=== PATIENT | female | born 1955 | race African-American/Black ===

== ENCOUNTER 2021-12-16 06:04 | Emergency (ER) | payer OTHER ==
[~2021-12-16] VITALS: Ht 167.6 cm; Wt 81.6 kg
[2021-12-16 06:09] VITALS: BP 149/68
[2021-12-16] MEDS ORDERED: CEPH-509 PO (07:05)
[2021-12-16] MEDS ORDERED: ACE3T PO (07:05)
[2021-12-16] MEDS ORDERED: ONDANSETRON ODT 4 MG TAB PO ONE (07:15)
[2021-12-16] MEDS ORDERED: ACETAMINOPHEN/CODEINE#3 (300/30mg) TAB PO ONE (07:15)
== END 2021-12-16 10:08 | disposition home or self-care (01) ==
LOC: ER 06:04 → EDBD 06:04 → ER 10:08
DX: S81.012A Laceration without foreign body, left knee, initial encounter (principal); I10 Essential (primary) hypertension; E11.9 Type 2 diabetes mellitus without complications; E78.5 Hyperlipidemia, unspecified; Z86.73 Personal history of transient ischemic attack (TIA), and cerebral infarction without residual deficits; Z79.899 Other long term (current) drug therapy; Z91.040 Latex allergy status; W01.198A Fall on same level from slipping, tripping and stumbling with subsequent striking against other object, initial encounter; Y93.89 Activity, other specified; Y92.89 Other specified places as the place of occurrence of the external cause; Y99.8 Other external cause status
CPT/HCPCS: 12002; 73562; 99283; J2001; J7030; Q0162

== ENCOUNTER 2022-01-02 08:21 | Emergency (ER) | payer OTHER, MEDICAID ==
[~2022-01-02] VITALS: Ht 165.1 cm; Wt 75.7 kg
[~2022-01-02 08:21] MED LIST: ACE3T PO; CEPH-509 PO
[2022-01-02 08:34] VITALS: BP 124/67
[2022-01-02] MEDS ORDERED: CEPH-509 PO (08:53)
== END 2022-01-02 09:04 | disposition home or self-care (01) ==
LOC: ER 08:21
DX: S81.012D Laceration without foreign body, left knee, subsequent encounter (principal); I10 Essential (primary) hypertension; E11.9 Type 2 diabetes mellitus without complications; E78.5 Hyperlipidemia, unspecified; Z86.73 Personal history of transient ischemic attack (TIA), and cerebral infarction without residual deficits; Z79.899 Other long term (current) drug therapy; Z88.8 Allergy status to other drugs, medicaments and biological substances; Z91.040 Latex allergy status; X58.XXXD Exposure to other specified factors, subsequent encounter

== ENCOUNTER 2022-01-09 08:08 | Emergency (ER) | payer OTHER, MEDICAID ==
[~2022-01-09] VITALS: Ht 165.1 cm; Wt 75.7 kg
[2022-01-09 08:11] VITALS: BP 159/60
== END 2022-01-09 08:27 | disposition home or self-care (01) ==
LOC: ER 08:08
DX: S81.012D Laceration without foreign body, left knee, subsequent encounter (principal); E11.9 Type 2 diabetes mellitus without complications; E78.5 Hyperlipidemia, unspecified; I10 Essential (primary) hypertension; Z86.73 Personal history of transient ischemic attack (TIA), and cerebral infarction without residual deficits; X58.XXXD Exposure to other specified factors, subsequent encounter

== ENCOUNTER 2023-09-11 23:29 | Emergency (ER) | payer OTHER ==
[~2023-09-11] VITALS: Ht 165.1 cm; Wt 71.8 kg
[2023-09-12 01:48] VITALS: BP 187/89; PULSE 69; RESP 16; TEMP 97.6; O2SAT 99
== END 2023-09-12 03:56 | disposition home or self-care (01) ==
LOC: ER 23:29
DX: M25.551 Pain in right hip (principal); I10 Essential (primary) hypertension; E11.9 Type 2 diabetes mellitus without complications; E78.5 Hyperlipidemia, unspecified; Z86.73 Personal history of transient ischemic attack (TIA), and cerebral infarction without residual deficits; Z79.899 Other long term (current) drug therapy; Z91.040 Latex allergy status; Z88.8 Allergy status to other drugs, medicaments and biological substances; W10.9XXA Fall (on) (from) unspecified stairs and steps, initial encounter; Y93.89 Activity, other specified; Y92.89 Other specified places as the place of occurrence of the external cause; Y99.8 Other external cause status
CPT/HCPCS: 72170

== ENCOUNTER 2024-01-17 13:51 | Emergency (ER) | payer OTHER ==
[~2024-01-17] VITALS: Ht 165.1 cm; Wt 70.0 kg
[2024-01-17] MEDS ORDERED: ACET500T58 PO (19:52)
[2024-01-17] MEDS ORDERED: PRED10TA PO (19:52)
[2024-01-17] MEDS ORDERED: CEPH500C PO (19:52)
[2024-01-17 20:20] VITALS: BP 132/78; PULSE 66; RESP 18; O2SAT 100
[2024-01-17 20:38] VITALS: TEMP 97.5
[2024-01-17] MEDS: ACETAMINOPHEN 325 MG TAB PO ONE (20:38)
[2024-01-17] MEDS: cefTRIAXone SOD 1,000 MG VL IM ONE (20:38)
[2024-01-17] MEDS: LIDOCAINE 1% HCL (LOCAL ANESTH.) INJ 20ML MDV ID ONE (20:45)
== END 2024-01-17 21:25 | disposition home or self-care (01) ==
LOC: ER 13:51
DX: L03.032 Cellulitis of left toe (principal); E11.9 Type 2 diabetes mellitus without complications; E78.5 Hyperlipidemia, unspecified; I10 Essential (primary) hypertension; Z86.73 Personal history of transient ischemic attack (TIA), and cerebral infarction without residual deficits; Z91.040 Latex allergy status
CPT/HCPCS: 73660; 96372; 99283; J0696; J2001

== ENCOUNTER 2024-08-23 08:23 | Emergency (ER) | payer BC, OTHER ==
[~2024-08-23] VITALS: Ht 165.1 cm; Wt 68.0 kg
[~2024-08-23 08:23] MED LIST changes: +ACET500T58 PO; +CEPH500C PO; +PRED10TA PO
[2024-08-23 09:19] LABS: Basophils # (auto) 0.1 10 ^3/uL (0-0.2); Eosinophils # (auto) 0.1 10 ^3/uL (0-0.8); Lymphocytes # (auto) 1.7 10 ^3/uL (0.4-5.4); Lymphocytes % (auto) 17.1 % (10.0-50.0); Monocytes # (auto) 0.6 10 ^3/uL (0-1.3)
[2024-08-23 09:21] LABS: Basophils % (auto) 0.6 % (0.0-2.0); Eosinophils % (auto) 1.1 % (0.0-7.0); Hematocrit 27.3 % (36.0-46.0); Hemoglobin 8.5 g/dL (12.2-16.2); Mean Corpuscular Hemoglobin 30.2 pg (28.0-32.0); Mean Corpuscular Hgb Conc. 31.1 g/dL (32.0-36.0); Mean Corpuscular Volume 96.9 fL (80.0-100.0); Monocytes % (auto) 5.9 % (0.0-12.0); Neutrophils # (auto) 7.7 10 ^3/uL (1.6-8.6); Neutrophils % (auto) 75.3 % (37.0-80.0); Nucleated Red Blood Cells % 0.4 %; Platelet Count (auto) 208 10^3/uL (140-450); Red Blood Cells 2.82 10^6/uL (4.0-5.20); Red Cell Distribution Width 15.9 % (11.8-14.3); White Blood Cell 10.2 10^3/uL (4.4-10.8)
[2024-08-23 09:30] VITALS: BP 110/40; RESP 18; TEMP 97.6; O2SAT 95
[2024-08-23 09:36] LABS: Alkaline Phosphatase 91 U/L (46-116); Anion Gap 7 (5-15); BUN/Creatinine Ratio 5.9 (10.0-20.0); Carbon Dioxide 25 mmol/L (20-31); Chloride 105 mmol/L (98-107); Potassium 4.6 mmol/L (3.5-5.1); Sodium 137 mmol/L (136-145)
[2024-08-23 09:37] LABS: Albumin 4.2 g/dL (3.2-4.8); Bilirubin, Total 0.2 mg/dL (0.2-1.0); Total Protein 6.8 g/dL (5.7-8.2)
--- NOTE | 2024-08-23 09:37 | DVH ---
CHEST RADIOGRAPH Indication: cp Technique: Frontal and lateral view of the chest was obtained Comparison: None FINDINGS: Lines and Tubes: Tunneled right central venous catheter in satisfactory position. Lungs: Left basilar subsegmental atelectasis. Pleura: No effusion. No pneumothorax. Cardiomediastinal contours: Unremarkable Bones: Unremarkable IMPRESSION: Left basilar subsegmental atelectasis.
[2024-08-23 09:44] LABS: Alanine Aminotransferase < 9 U/L (7-40); Aspartate Aminotransferase 10 U/L (13-40); Blood Urea Nitrogen 48 mg/dL (9-23); Calcium 10.6 mg/dL (8.7-10.4); Glucose 161 mg/dL (74-106); Magnesium 3.1 mg/dL (1.6-2.6)
[2024-08-23 10:24] VITALS: PULSE 65
--- NOTE | 2024-08-23 10:24 | ED.PDOC ---
History of Present Illness HPI Comments 69 y/o F, with a Hx of CVA, DM, ESRD w/HD M/W/F, HLD, and HTN, presents with son for ESRD - needing dialysis, today. Per son, patient is a poor historian and reported to have, recently, been Dx with ESRD and placed on dialysis during a hospital admission, while visiting family, in [place] and was instructed to come to the ED for emergency dialysis after returning, yesterday, due to, yet, establishing point of care with her local dialysis center. He last dialysis appointment was stated to have taken place in [place] on Wednesday (08/21/24). She has a reported Neetu-catheter in her right-upper chest area. Patient denies having any fluid retention, weakness, chest pain, shortness of breath, or other symptoms at this time. Chief Complaint: Chest Wall Injury Time Seen by MD: 08:45 Primary Care Provider: NONE Reviewed Notes: Nurses Notes, Medications, Allergies Allergies: Coded Allergies: Latex (Verified Allergy, Unknown, 12/16/21) Lisinopril (Verified Allergy, Unknown, 01/02/22) Home Meds Active Scripts Cephalexin Monohydrate (Cephalexin) 500 Mg Cap, 1 CAP PO QID for 7 Days, #28 CAP 0 Refills Prov:JEFF BRITT 01/17/24 Prednisone (Prednisone) 10 Mg Tab, 10 MG PO BID for 5 Days, #10 TAB 0 Refills Prov:JEFF BRITT 01/17/24 Acetaminophen (Acetaminophen) 500 Mg Tab, 500 MG PO Q4HPRN, #30 TAB 0 Refills Prov:JEFF BRITT 01/17/24 Cephalexin (KEFLEX 500) 500 Mg Cap, 1 CAP PO QID, #28 CAP Prov:KARSTEN LOZA 01/02/22 Acetaminophen W/ Codeine (Tylenol W/Cod #3) 1 Tab Tb, 1 TAB PO QIDP, #10 TAB 0 Refills Prov:JEFF BRITT 12/16/21 Cephalexin (KEFLEX 500) 500 Mg Cap, 1 CAP PO BID for 7 Days, #14 CAP 0 Refills Prov:JEFF BRITT 12/16/21 Information Source: Patient, Relative (Child) Mode of Arrival: Ambulatory Severity: Moderate Timing: Hours Duration: Since onset Prehospital treatment: None Past Medical History PAST MEDICAL HISTORY: CKF (progressed to ESRD), CVA, DM, ESRD (w/HD M/W/F), High Lipids, HTN Surgical History: Hernia Repair, Tonsillectomy CATERING SALES MANAGER History: No Pertinent CATERING SALES MANAGER History Family History Family History: Unknown Social History Smoker: Non-Smoker Alcohol: Denies ETOH Use Drugs: Denies Drug Use Lives In: Home All Other Systems: Reviewed and Negative (negative unless otherwise stated above or in HPI) Physical Exam General Appearance: No Apparent Distress HEENT: Normal ENT Inspection, PERRL/EOMI Neck: Full Range of Motion, Non-Tender Respiratory: Chest Non-Tender, Lungs Clear, No Accessory Muscle Use, No Respiratory Distress, Normal Breath Sounds, Other (Catheter right upper chest) Cardiovascular: No Edema, No JVD, No Murmur, No Gallop, Normal Peripheral Pulses, Regular Rate/Rhythm Breast Exam: Deferred Gastrointestinal: No Organomegaly, Non Tender, No Pulsatile Mass, Normal Bowel Sounds, Soft Genitalia: Deferred Pelvic: Deferred Rectal: Deferred Extremities: No calf tenderness, Normal capillary refill, Normal inspection, Normal range of motion, Non-tender, No pedal edema Neurologic: Alert, 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 Was a procedure done?: No EKG EKG : Pulse Rate (adult): 65 Armstrong: Normal Cardiac Rhythm: NSR Block: None Hypertrophy: LVH ST: Normal Differential Dx Considerations may include: ESRD needing dialysis X-Ray, Labs, Meds, VS Vital Signs Date Time Temp Pulse Resp B/P (MAP) Pulse Ox O2 Delivery O2 Flow Rate FiO2 08/23/24 10:24 65 08/23/24 09:35 Room Air* 0 21 08/23/24 09:30 97.6 63 18 110/40 (63) 95 97.6 08/23/24 08:44 65 08/23/24 08:30 98.2 74 18 122/52 (75) 95 Lab Test 08/23/24 09:08 08/23/24 08:35 Range/Units White Blood Count 10.2 4.4-10.8 10^3/uL Red Blood Count 2.82 L 4.0-5.20 10^6/uL Hemoglobin 8.5 L 12.2-16.2 g/dL Hematocrit 27.3 L 36.0-46.0 % Mean Corpuscular Volume 96.9 80.0-100.0 fL Mean Corpuscular Hemoglobin 30.2 28.0-32.0 pg Mean Corpuscular Hemoglobin Concent 31.1 L 32.0-36.0 g/dL Red Cell Distribution Width 15.9 H 11.8-14.3 % Platelet Count 208 140-450 10^3/uL Mean Platelet Volume 9.5 6.9-10.8 fL Neutrophils (%) (Auto) 75.3 37.0-80.0 % Lymphocytes (%) (Auto) 17.1 10.0-50.0 % Monocytes (%) (Auto) 5.9 0.0-12.0 % Eosinophils (%) (Auto) 1.1 0.0-7.0 % Basophils (%) (Auto) 0.6 0.0-2.0 % Neutrophils # (Auto) 7.7 1.6-8.6 10 ^3/uL Lymphocytes # (Auto) 1.7 0.4-5.4 10 ^3/uL Monocytes # (Auto) 0.6 0-1.3 10 ^3/uL Eosinophils # (Auto) 0.1 0-0.8 10 ^3/uL Basophils # (Auto) 0.1 0-0.2 10 ^3/uL Nucleated Red Blood Cells 0.4 % Sodium Level 137 136-145 mmol/L Potassium Level 4.6 3.5-5.1 mmol/L Chloride Level 105 98-107 mmol/L Carbon Dioxide Level 25 20-31 mmol/L Anion Gap 7 5-15 Blood Urea Nitrogen 48 H 9-23 mg/dL Creatinine 8.09 H 0.550-1.02 mg/dL Glomerular Filtration Rate Calc 5 >90 mL/min BUN/Creatinine Ratio 5.9 L 10.0-20.0 Serum Glucose 161 H 74-106 mg/dL Calcium Level 10.6 H 8.7-10.4 mg/dL Magnesium Level 3.1 H 1.6-2.6 mg/dL Total Bilirubin 0.2 0.2-1.0 mg/dL Aspartate Amino Transferase (AST) 10 L 13-40 U/L Alanine Aminotransferase (ALT) < 9 7-40 U/L Alkaline Phosphatase 91 46-116 U/L Total Protein 6.8 5.7-8.2 g/dL Albumin 4.2 3.2-4.8 g/dL POC Glucose 137 H 70-106 mg/dl [facility] [id number] [place] [address] DIAGNOSTIC IMAGING Diagnostic Imaging Report : [id number] Signed PATIENT: BRANDYN REESE ACCT: [id number] UNIT: [id number] : 1955 LOC: ER ROOM / BED: / AGE / SEX: 69 / F ADM STATUS: REG ER SERVICE 4 ORDERING PHYSICIAN: MIK DUARTE MD PROCEDURE(s): CXR2 - CHEST TWO VIEWS ROUTINE REASON: cp ORDER NUMBER(s): [id number], ACCESSION NUMBER(s): [id number] CHEST RADIOGRAPH Indication: cp Technique: Frontal and lateral view of the chest was obtained Comparison: None FINDINGS: Lines and Tubes: Tunneled right central venous catheter in satisfactory position. Lungs: Left basilar subsegmental atelectasis. Pleura: No effusion. No pneumothorax. Cardiomediastinal contours: Unremarkable Bones: Unremarkable IMPRESSION: Left basilar subsegmental atelectasis. ATED BY: KEHINDE PARKER MD DICTATED DATE/TIME: 08/23/24934 SIGNED BY: KEHINDE PARKER MD SIGNED DATE/TIME: 08/23/24934 CC: X-Ray, Labs, Meds, VS Comment Course in the emergency department eventful Patient was in [place] and was diagnosed with a end-stage renal failure needing dialysis She received dialysis 3 times and last was on Wednesday and was instructed to come to the hospital to receive her Wednesday dialysis She does not have a dialysis center at this time she needs to find a rn transitional EKG shows normal sinus rhythm at 65 with left atrial enlargement left v entricular hypertrophy Chest x-ray [place] [address] with a 75% neutrophils H&H 8.5 and 25 CMP potassium 4.6 BUN 48 creatinine 8.09 with a GFR of five Blood sugar 161 Magnesium 2.1 Patient will have dialysis an emergency [facility] nephrology has been consulted G2 in emergency diagnosis Time of 1ST Reevaluation: 09:15 Reevaluation 1ST: Unchanged Patient Education/Counseling: Diagnosis, Treatment Family Education/Counseling: Diagnosis, Treatment Departure 1 Departure Time of Disposition: 11:18 Impression: Primary Impression: End stage renal failure on dialysis Additional Impressions: Anemia of chronic disease Diabetes 1.5, managed as type 2 History of CVA (cerebrovascular accident) Disposition: 30 STILL A PATIENT Condition: Serious Critical Care Note Critical Care Time?: No Stability Stability form required: Yes Heart Score Heart Score: Heart Score Response (Comments) Value History N/A 0 EKG Normal 0 Age >65 2 Risk Factors >3 or Hx ASHD 2 Troponin N/A 0 Total 4 I personally scribed for MIK DUARTE MD ([email or web address]) on 08/23/24 at 10:24. Electronically submitted by Clifton Chappell ([email or web address]). I personally scribed for MIK DUARTE MD ([email or web address]) on 08/23/24 at 11:05. Electronically submitted by Clifton Chappell ([email or web address]). MIK DUARTE MD Aug 23, 2024 10:24
--- NOTE | 2024-08-23 12:15 | ECG ---
[facility] Test Date: 2024-08-23 Test Time: 08:44:00 Pat Name: BRANDYN REESE Department: ER Room: Gender: F Sales Appointment Coordinator: IUG : 1955 Requested By: MIK DUARTE Order Number: [id number] Reading MD: Lonnie Lyn Measurements Intervals [place] Rate: 65 P: 65 [place]: 194 QRS: 30 QRSD: 85 T: 89 QT: 439 QTc: 457 Interpretive Statements Sinus rhythm Probable left atrial enlargement LVH with secondary repolarization abnormality Baseline wander in lead(s) II,III,aVL,aVF,V6 Electronically Signed On 08-25-2024 12:44:10 PST by Lonnie Lyn Please click the below link to view image of tracing.
== END 2024-08-23 17:48 | disposition left against medical advice (07) ==
LOC: ER 08:23
DX: I12.0 Hypertensive chronic kidney disease with stage 5 chronic kidney disease or end stage renal disease (principal); E11.22 Type 2 diabetes mellitus with diabetic chronic kidney disease; N18.6 End stage renal disease; D63.1 Anemia in chronic kidney disease; E78.5 Hyperlipidemia, unspecified; Z99.2 Dependence on renal dialysis; Z86.73 Personal history of transient ischemic attack (TIA), and cerebral infarction without residual deficits; Z90.89 Acquired absence of other organs; Z98.890 Other specified postprocedural states; Z88.8 Allergy status to other drugs, medicaments and biological substances; Z79.52 Long term (current) use of systemic steroids; Z91.040 Latex allergy status; Z79.899 Other long term (current) drug therapy
CPT/HCPCS: 36415; 71046; 80053; 82962; 83735; 85025; 93005

== ENCOUNTER 2024-08-29 07:29 | Inpatient (IN) | payer BC, OTHER ==
[~2024-08-29] VITALS: Ht 165.1 cm; Wt 70.2 kg
[2024-08-29 08:25] VITALS: RESP 17
--- NOTE | 2024-08-29 08:37 | ED.PDOC ---
History of Present Illness HPI Comments 69 Y F, with PMHX of DM, ESRD, HLD, HTN, presents to the ED with CC of abnormal labs. Per patient's son, patient has been refusing dialysis for x1 week. Patient's son relays that last time patient received dialysis was on 08/21/24 in [place]; which she received 4 rounds of. Patient states that she was instructed to follow up with ED if any adverse symptoms occurred. Patient states that she was last seen at [facility] on 08/22/24 following dialysis treatment however, patient eloped due to 6 hr wait. Patient NKA are: lodine, lisinopril, ampicillin, atorvastatin, and latex. Patient denies any N/V/D, chills, cough, body aches or nasal congestion. Chief Complaint: Abnormal LAB's Time Seen by MD: 08:00 Primary Care Provider: MEDICAL Reviewed Notes: Nurses Notes, Medications, Allergies Allergies: Coded Allergies: Latex (Verified Allergy, Unknown, 12/16/21) Lisinopril (Verified Allergy, Unknown, 01/02/22) Home Meds Active Scripts Cephalexin Monohydrate (Cephalexin) 500 Mg Cap, 1 CAP PO QID for 7 Days, #28 CAP 0 Refills Prov:JEFF BRITT 01/17/24 Prednisone (Prednisone) 10 Mg Tab, 10 MG PO BID for 5 Days, #10 TAB 0 Refills Prov:JEFF BRITT 01/17/24 Acetaminophen (Acetaminophen) 500 Mg Tab, 500 MG PO Q4HPRN, #30 TAB 0 Refills Prov:JEFF BRITT 01/17/24 Cephalexin (KEFLEX 500) 500 Mg Cap, 1 CAP PO QID, #28 CAP Prov:KARSTEN LOZA 01/02/22 Acetaminophen W/ Codeine (Tylenol W/Cod #3) 1 Tab Tb, 1 TAB PO QIDP, #10 TAB 0 Refills Prov:JEFF BRITT 12/16/21 Cephalexin (KEFLEX 500) 500 Mg Cap, 1 CAP PO BID for 7 Days, #14 CAP 0 Refills Prov:JEFF BRITT 12/16/21 Information Source: Patient, Relative (SON) Mode of Arrival: Ambulatory Severity: Mild Timing: Days Duration: Since onset Past Medical History PAST MEDICAL HISTORY: CKF, CVA, DM, ESRD, High Lipids, HTN Surgical History: Hernia Repair, Tonsillectomy CATERERS HELPER History: No Pertinent CATERERS HELPER History Family History Family History: Unknown Social History Smoker: Non-Smoker Alcohol: Denies ETOH Use Drugs: Denies Drug Use Lives In: Home Constitutional: denies: chills, diaphoresis, fatigue, fever, malaise, sweats, weakness, others EENTM: denies: blurred vision, double vision, ear bleeding, ear discharge, ear drainage, ear pain, ear ringing, eye pain, eye redness, hearing loss, mouth pain, mouth swelling, nasal discharge, nose bleeding, nose congestion, nose pain, photophobia, tearing, throat pain, throat swelling, voice changes, others Respiratory: denies: cough, hemoptysis, orthopnea, SOB at rest, shortness of breath, SOB with excertion, stridor, wheezing, others Cardiovascular: denies: chest pain, dizzy spells, diaphoresis, Dyspnea on exertion, edema, irregular heart beat, left arm pain, lightheadedness, palpitations, PND, syncope, others Gastrointestinal: denies: abdomen distended, abdominal pain, blood streaked bowels, constipated, diarrhea, dysphagia, difficulty swallowing, hematemesis, melena, nausea, poor appetite, poor fluid intake, rectal bleeding, rectal pain, vomiting, others Genitourinary: denies: abnormal vagina bleeding, burning, dyspareunia, dysuria, flank pain, frequency, hematuria, incontinence, pain, , vagina discharge, urgency, others Neurological: denies: dizziness, fainting, headache, left sided numbness, left sided weakness, numbness, paresthesia, pre-existing deficit, right sided numbness, right sided weakness, seizure, speech problems, tingling, tremors, weakness, others Musculoskeletal: denies: back pain, gout, joint pain, joint swelling, muscle pain, muscle stiffness, neck pain, others Integumetry: denies: bruises, change in color, change in hair/nails, dryness, laceration, lesions, lumps, rash, wounds, others Allergic/Immunocompromised: denies: Difficulty Healing, Frequent Infections, Hives, Itching, others Hematologic/Lymphatic: denies: anemia, blood clots, easy bleeding, easy bruising, swollen glands, others Endocrine: denies: excessive hunger, excessive sweating, excessive thirst, excessive urination, flushing, intolerance to cold, intolerance to heat, unexplained weight gain, unexplained weight loss, others Psychiatric: denies: anxiety, bipolar disorder, depression, hopeless, panic disorder, schizophrenia, sleepless, suicidal, others All Other Systems: Reviewed and Negative Physical Exam General Appearance: No Apparent Distress, Normal HEENT: Normal ENT Inspection, Pharynx Normal, TMs Normal Neck: Full Range of Motion, Non-Tender, Normal, Normal Inspection Respiratory: Chest Non-Tender, Lungs Clear, No Accessory Muscle Use, No Respiratory Distress, Normal Breath Sounds Cardiovascular: No Edema, No JVD, No Murmur, No Gallop, Normal Peripheral Pulses, Regular Rate/Rhythm Breast Exam: Deferred Gastrointestinal: No Organomegaly, Non Tender, No Pulsatile Mass, Normal Bowel Sounds, Soft Genitalia: Deferred Pelvic: Deferred Rectal: Deferred Extremities: No calf tenderness, Normal capillary refill, Normal inspection, Normal range of motion, Non-tender, No pedal edema Musculoskeletal : Apperance: Normal Neurologic: Alert, 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 Was a procedure done?: No Differential Dx Considerations may include: End-stage renal disease needing dialysis, electrolyte abnormalities X-Ray, Labs, Meds, VS Vital Signs Date Time Temp Pulse Resp B/P (MAP) Pulse Ox O2 Delivery O2 Flow Rate FiO2 08/29/24 09:29 57 12 97 Room Air* 0 21 08/29/24 09:15 97.5 12 97 179/81 (113) 97 97.5 08/29/24 08:30 97.7 60 16 203/74 (117) 100 97.7 08/29/24 08:25 17 Room Air* 0 21 08/29/24 07:47 98.2 64 18 189/64 (105) 99 Lab Test 08/29/24 09:55 08/29/24 08:37 Range/Units Troponin I High Sensitivity Pending 41 *H </=34 ng/L White Blood Count 5.4 # 4.4-10.8 10^3/uL Red Blood Count 2.96 L 4.0-5.20 10^6/uL Hemoglobin 8.9 L 12.2-16.2 g/dL Hematocrit 28.4 L 36.0-46.0 % Mean Corpuscular Volume 95.9 80.0-100.0 fL Mean Corpuscular Hemoglobin 30.2 28.0-32.0 pg Mean Corpuscular Hemoglobin Concent 31.5 L 32.0-36.0 g/dL Red Cell Distribution Width 16.3 H 11.8-14.3 % Platelet Count 305 140-450 10^3/uL Mean Platelet Volume 8.8 6.9-10.8 fL Neutrophils (%) (Auto) 64.1 37.0-80.0 % Lymphocytes (%) (Auto) 27.1 10.0-50.0 % Monocytes (%) (Auto) 5.7 0.0-12.0 % Eosinophils (%) (Auto) 1.8 0.0-7.0 % Basophils (%) (Auto) 1.3 0.0-2.0 % Neutrophils # (Auto) 3.4 1.6-8.6 10 ^3/uL Lymphocytes # (Auto) 1.5 0.4-5.4 10 ^3/uL Monocytes # (Auto) 0.3 0-1.3 10 ^3/uL Eosinophils # (Auto) 0.1 0-0.8 10 ^3/uL Basophils # (Auto) 0.1 0-0.2 10 ^3/uL Nucleated Red Blood Cells 0.1 % Sodium Level 143 # 136-145 mmol/L Potassium Level 4.9 3.5-5.1 mmol/L Chloride Level 110 H 98-107 mmol/L Carbon Dioxide Level 21 20-31 mmol/L Anion Gap 12 5-15 Blood Urea Nitrogen 76 H 9-23 mg/dL Creatinine 11.15 #*H 0.550-1.02 mg/dL Glomerular Filtration Rate Calc 3 >90 mL/min BUN/Creatinine Ratio 6.8 L 10.0-20.0 Serum Glucose 110 H 74-106 mg/dL Calcium Level 9.9 8.7-10.4 mg/dL Phosphorus Level 8.7 H 2.4-5.1 mg/dL Magnesium Level 3.2 H 1.6-2.6 mg/dL [facility] [address] [facility] [address] Ph: [phone] DIAGNOSTIC IMAGING Diagnostic Imaging Report : [id number] Signed PATIENT: BRANDYN REESECCT: [id number] UNIT: [id number] : 1955 LOC: ER ROOM / BED: / AGE / SEX: 69 / F ADM STATUS: REG ER SERVICE 0 ORDERING PHYSICIAN: MADELINE PARK MD PROCEDURE(s): CXR2 - CHEST TWO VIEWS ROUTINE REASON: weakness ORDER NUMBER(s): [id number], ACCESSION NUMBER(s): [id number] CHEST RADIOGRAPH Indication: weakness Technique: Frontal and lateral view of the chest was obtained Comparison: XY CHEST TWO VIEWS ROUTINE on DOS: 08/23/24 FINDINGS: Lines and Tubes: Tunneled right central venous catheter in satisfactory position. Lungs: Clear Pleura: No effusion. No pneumothorax. Cardiomediastinal contours: Unremarkable Bones: Unremarkable IMPRESSION: No evidence of acute disease. ATED BY: KEHINDE PARKER MD DICTATED DATE/TIME: 08/29/24832 SIGNED BY: KEHINDE PARKER MD SIGNED DATE/TIME: 08/29/24832 CC: Time of 1ST Reevaluation: 08:30 Reevaluation 1ST: Unchanged Patient Education/Counseling: Diagnosis, Treatment Family Education/Counseling: No Family Present Additional Information I reviewed the following notes from patient's past medical encounters: 08/23/24 The following tests were ordered, and results were reviewed by me: BMP, CBC, TROPONIN X3, EKG, CXR Additional Information was gathered from interviewing the following independent historians: SON I reviewed and agreed with the following test results read by other providers: CXR I discussed treatment and results with medical personnel and family. Departure 1 Departure Time of Disposition: 10:13 (Patient with worsening kidney function electrolyte abnormalities and elevated BUN. Patient needs dialysis. We will admit patient for further workup) Impression: Primary Impression: Metabolic encephalopathy Additional Impressions: Electrolyte abnormality Generalized weakness Renal failure Qualified Codes: N18.5 - Chronic kidney disease, stage 5 Disposition: ADMITTED INPATIENT Admit to: Med Surg Condition: Serious Critical Care Note Critical Care Time?: No Stability Stability form required: No Heart Score Heart Score: Heart Score Response (Comments) Value History N/A 0 EKG N/A 0 Age N/A 0 Risk Factors N/A 0 Troponin N/A 0 Total 0 I personally scribed for MADELINE PARK MD ([email or web address]) on 08/29/24 at 08:37. Electronically submitted by Aisha Li ([email or web address]). I personally scribed for MADELINE PARK MD ([email or web address]) on 08/29/24 at 08:39. Electronically submitted by Aisha Li ([email or web address]). I personally scribed for MADELINE PARK MD ([email or web address]) on 08/29/24 at 08:43. Electronically submitted by Aisha Li ([email or web address]). I personally scribed for MADELINE PARK MD ([email or web address]) on 08/29/24 at 09:02. Electronically submitted by Aisha Li ([email or web address]). MADELINE PARK MD Aug 29, 2024 08:37
[2024-08-29 08:48] LABS: Basophils # (auto) 0.1 10 ^3/uL (0-0.2); Basophils % (auto) 1.3 % (0.0-2.0); Eosinophils # (auto) 0.1 10 ^3/uL (0-0.8); Eosinophils % (auto) 1.8 % (0.0-7.0); Hematocrit 28.4 % (36.0-46.0); Hemoglobin 8.9 g/dL (12.2-16.2); Lymphocytes # (auto) 1.5 10 ^3/uL (0.4-5.4); Lymphocytes % (auto) 27.1 % (10.0-50.0); Mean Corpuscular Hemoglobin 30.2 pg (28.0-32.0); Mean Corpuscular Hgb Conc. 31.5 g/dL (32.0-36.0); Mean Corpuscular Volume 95.9 fL (80.0-100.0); Monocytes # (auto) 0.3 10 ^3/uL (0-1.3); Monocytes % (auto) 5.7 % (0.0-12.0); Neutrophils # (auto) 3.4 10 ^3/uL (1.6-8.6); Neutrophils % (auto) 64.1 % (37.0-80.0); Nucleated Red Blood Cells % 0.1 %; Platelet Count (auto) 305 10^3/uL (140-450); Red Blood Cells 2.96 10^6/uL (4.0-5.20); Red Cell Distribution Width 16.3 % (11.8-14.3); White Blood Cell 5.4 10^3/uL (4.4-10.8)
[2024-08-29 08:53] LABS: Potassium 4.9 mmol/L (3.5-5.1); Sodium 143 mmol/L (136-145)
[2024-08-29 08:54] LABS: Anion Gap 12 (5-15); Carbon Dioxide 21 mmol/L (20-31)
[2024-08-29 08:55] LABS: Calcium 9.9 mg/dL (8.7-10.4)
[2024-08-29 09:00] LABS: BUN/Creatinine Ratio 6.8 (10.0-20.0)
[2024-08-29 09:01] LABS: Blood Urea Nitrogen 76 mg/dL (9-23); Chloride 110 mmol/L (98-107); Glucose 110 mg/dL (74-106); Magnesium 3.2 mg/dL (1.6-2.6)
[2024-08-29 09:05] LABS: Phosphorus 8.7 mg/dL (2.4-5.1)
[2024-08-29 09:29] VITALS: PULSE 57; RESP 12; O2SAT 97
[2024-08-29] MEDS ORDERED: CLOP75TA70 PO (11:13)
[2024-08-29] MEDS ORDERED: CARV12.544 PO (11:13)
[2024-08-29] MEDS ORDERED: ONDANSETRON HCL 4 MG/2 ML VIAL IV PRN (11:15)
[2024-08-29] MEDS ORDERED: DOCUSATE SOD 100 MG CAP PO PRN (11:15)
[2024-08-29] MEDS ORDERED: ACETAMINOPHEN 325 MG TAB PO PRN (11:15)
[2024-08-29] MEDS ORDERED: MORPHINE SULFATE INJ 2 MG/ml SYRG IV PRN (11:15)
[2024-08-29] MEDS ORDERED: NITROGLYCERIN 0.4 MG SL TAB SL PRN (11:15)
--- NOTE | 2024-08-29 11:25 | DVHHP2 ---
History of Present Illness Reason for Visit: Needs HD History of Present Illness Nadja Tesfaye is a 69-year-old female with past medical history of hypertension, hyperlipidemia, diabetes, ESRD new to HD, and stroke, who came in due to needing hemodialysis. Patient lives [facility]. She states she was visiting [place] when she ended up in the hospital and requiring hemodialysis. She states she was hospitalized for over a week and received about 4 HD treatments. Her last treatment was 08/21/2024. Since coming home she has not followed up with any physicians, and has not had hemodialysis since leaving the hospital in [place]. Her son brought her in concerned because she has not been receiving hemodialysis. Patient denies any chest pain, dizziness, shortness of breath, nausea, or vomiting. Cardiovascular: HTN, hyperipidemia Renal/: Chronic renal failure Endocrine: Diabetes Past Surgical History: Appendectomy, Hernia Repair, Tonsillectomy Family History: None Smoke: No ALCOHOL: none Drugs: None Lives: with Family Domestic Violence: Neg Review of Systems Constitutional: No: Fever, Chills, Sweats, Weakness, Malaise, Other Eyes: No: Pain, Vision change, Conjunctivae inflammation, Eyelid inflammation, Other, Redness ENT: No: Ear pain, Ear discharge, Nose pain, Nose discharge, Nose congestion, Mouth pain, Mouth swelling, Throat pain, Throat swelling, Other Respiratory: No: Cough, Dry, Shortness of breath, SOB with excertion, Wheezing, Hemoptysis, Pleuritic Pain, Sputum, Wheezing, Other Cardiovascular: No: Chest Pain, Palpitations, Orthopnea, Paroxysmal Noc. Dyspnea, Edema, Lt Headedness, Other Gastrointestinal: No: Nausea, Vomiting, Abdominal Pain, Diarrhea, Constipation, Melena, Hematochezia, Other Genitourinary: No Dysuria, No Frequency, No Incontinence, No Hematuria, No Retention, No Other Musculoskeletal: No: other, neck pain, shoulder pain, arm pain, back pain, hand pain, leg pain, foot pain Skin: No: Rash, Lesions, Jaundice, Bruising, Other Neurological: No: Weakness, Numbness, Incoordination, Change in speech, Confusion, Seizures, Other Other Abnormal labs, needs HD Allergies: Coded Allergies: Latex (Verified Allergy, Unknown, 12/16/21) Lisinopril (Verified Allergy, Unknown, 01/02/22) Medications Current Medications Medications Dose Ordered Sig/Nitin Route Start Time Stop Time Status Last Admin Dose Admin Sodium Chloride 10 ml Q8HR IV 08/29/24 14:00 UNV Acetaminophen/ Hydrocodone Bitart 1 tab Q4HP PRN PO 08/29/24 11:15 UNV Ondansetron HCl 4 mg Q4HP PRN IV 08/29/24 11:15 UNV Docusate Sodium 100 mg BIDPRN PRN PO 08/29/24 11:15 UNV Acetaminophen 650 mg Q6HP PRN PO 08/29/24 11:15 UNV Nitroglycerin 0.4 mg Q5MINP PRN SL 08/29/24 11:15 UNV Morphine Sulfate 2 mg Q30M PRN IV 08/29/24 11:15 UNV Clopidogrel Bisulfate 75 mg DAILY PO 08/30/24 10:00 UNV Exam Vital Signs Vital Signs Date Time Temp Pulse Resp B/P (MAP) Pulse Ox O2 Delivery O2 Flow Rate FiO2 08/29/24 09:29 57 12 97 Room Air* 0 21 08/29/24 09:15 97.5 179/81 (113) 97.5 General Appearance: Alert, Oriented X3, Cooperative, moderate distress HEENT: Atraumatic, PERRLA Respiratory: Clear to auscultation, Normal air movement, Other (Bradycardia) Cardiovascular: Normal S1, Normal S2 Abdominal: Normal bowel sounds, Soft, No tenderness, No hepatospenomegaly Extremities: No clubbing, No cyanosis, No edema, Normal pulses Skin: No rashes, No breakdown, No significant lesion Neuro: Normal gait, Normal speech, Strength at 5/5 X4 ext Psych/Mental Status: Mental status NL, Mood NL Labs/Xrays Labs Test 08/29/24 09:55 08/29/24 08:37 Range/Units Troponin I High Sensitivity 36 *H </=34 ng/L White Blood Count 5.4 # 4.4-10.8 10^3/uL Red Blood Count 2.96 L 4.0-5.20 10^6/uL Hemoglobin 8.9 L 12.2-16.2 g/dL Hematocrit 28.4 L 36.0-46.0 % Mean Corpuscular Volume 95.9 80.0-100.0 fL Mean Corpuscular Hemoglobin 30.2 28.0-32.0 pg Mean Corpuscular Hemoglobin Concent 31.5 L 32.0-36.0 g/dL Red Cell Distribution Width 16.3 H 11.8-14.3 % Platelet Count 305 140-450 10^3/uL Mean Platelet Volume 8.8 6.9-10.8 fL Neutrophils (%) (Auto) 64.1 37.0-80.0 % Lymphocytes (%) (Auto) 27.1 10.0-50.0 % Monocytes (%) (Auto) 5.7 0.0-12.0 % Eosinophils (%) (Auto) 1.8 0.0-7.0 % Basophils (%) (Auto) 1.3 0.0-2.0 % Neutrophils # (Auto) 3.4 1.6-8.6 10 ^3/uL Lymphocytes # (Auto) 1.5 0.4-5.4 10 ^3/uL Monocytes # (Auto) 0.3 0-1.3 10 ^3/uL Eosinophils # (Auto) 0.1 0-0.8 10 ^3/uL Basophils # (Auto) 0.1 0-0.2 10 ^3/uL Nucleated Red Blood Cells 0.1 % Sodium Level 143 # 136-145 mmol/L Potassium Level 4.9 3.5-5.1 mmol/L Chloride Level 110 H 98-107 mmol/L Carbon Dioxide Level 21 20-31 mmol/L Anion Gap 12 5-15 Blood Urea Nitrogen 76 H 9-23 mg/dL Creatinine 11.15 #*H 0.550-1.02 mg/dL Glomerular Filtration Rate Calc 3 >90 mL/min BUN/Creatinine Ratio 6.8 L 10.0-20.0 Serum Glucose 110 H 74-106 mg/dL Calcium Level 9.9 8.7-10.4 mg/dL Phosphorus Level 8.7 H 2.4-5.1 mg/dL Magnesium Level 3.2 H 1.6-2.6 mg/dL CHEST RADIOGRAPH FINDINGS: Lines and Tubes: Tunneled right central venous catheter in satisfactory po sition. Lungs: Clear Pleura: No effusion. No pneumothorax. Cardiomediastinal contours: Unremarkable Bones: Unremarkable IMPRESSION: No evidence of acute disease. Assessment/Plan Assessment/Plan Assessment: Renal failure, Hyperkalemia, Hypertensive urgency, Diabetes, Hyperlipidemia, Plan: Admit to Tele, Nephrology consult, Accu checks Q AC&HS with sliding scale, Renal carb control diet, ECHO, Home medications reconciled, Coreg held due to bradycardia, Plan discussed with: Patient My Orders Orders - KJ PERDOMO Procedure Category Date Status Time Admit ADMIT 08/29/24 Transmitted 11:09 Code Status CODE 08/29/24 Transmitted 11:09 Renal DIET 08/29/24 Transmitted Standard(2gna,3gk,Lopho) Lunch Sodium Chloride Lock PHA 08/29/24 Logged (Saline Lock Ns) 14:00 Hydrocodone-Acet PHA 08/29/24 Logged 5/325mg Tab ([place] 11:15 Ondansetron Hcl PHA 08/29/24 Logged (Zofran) 11:15 Docusate Sodium PHA 08/29/24 Logged Capsule (Colace 11:15 Complete Blood Count LAB 08/30/24 Verified 04:00 Comprehensive LAB 08/30/24 Verified Metabolic Panel 04:00 Condition: Serious [facility] 08/29/24 In Process 11:09 Acetaminophen Tablet [facility] 08/29/24 Logged (Tylenol Tablet) 11:15 Nitroglycerin [facility] 08/29/24 Logged Sublingual (Ntrostat 11:15 Morphine Sulfate PHA 08/29/24 Logged Injection 11:15 Stat Ekg For Chest [facility] 08/29/24 In Process Pain 11:09 Notify Of Changes [facility] 08/29/24 In Process From Base 11:09 Wet Machine Tender For [facility] 08/29/24 In Process 24 Hours 11:09 Emergency Dysrhythmia [facility] 08/29/24 In Process Protocol 11:09 Rhythm Strips Once [facility] 08/29/24 In Process Every Shift 11:09 Oxygen By Nasal RT 08/29/24 Transmitted Cannula 11:09 *[facility] CONS 08/29/24 Transmitted -[place] 11:09 Clopidogrel Bisulfate PHA 08/30/24 Logged (Plavix) 10:00 Date of Service: Aug 29, 2024 Billing Provider: KJ PERDOMO Common Visit Codes: [id number] INP/OBS CARE (MOD) KJ PERDOMO Aug 29, 2024 11:25
[2024-08-29] MEDS: InsuLIN REG 1unit/0.01ml Soln (100units/ml) SC SCH ×2 (11:30→22:00)
[2024-08-29] MEDS ORDERED: DEXTROSE (50%) 50ML SYRG IV PRN (11:30)
[2024-08-29] MEDS: ACCU-CHEK COMFORT CURVE STRIP VI SCH (11:35)
[2024-08-29] MEDS: amLODIPine BESYLATE 5 MG TAB PO ONE (11:38)
--- NOTE | 2024-08-29 14:23 | DVHINCON2 ---
Date of service: Aug 29, 2024 Referring Physician Karen Hickey NP Reason for Consultation End-stage renal disease to manage hemodialysis History of Present Illness Patient is 69-year-old female with past medical history significant for CKD, CVA, DM, ESRD, High Lipids, HTN, apparently patient with a visiting her sister in [facility] where she developed uremic symptoms patient was admitted and to the hospital and was started on hemodialysis after placement of tunneled hemodialysis catheter plan to patient return bag and has not get dialysis for the last two weeks. On admission Nephrology is consulted to manage hemodialysis Past Medical History PAST MEDICAL HISTORY: CKF, CVA, DM, ESRD, High Lipids, HTN Past Surgical History Surgical History: Hernia Repair, Tonsillectomy Right IJ tunneled hemodialysis catheter Allergies: Coded Allergies: Latex (Verified Allergy, Unknown, 12/16/21) Lisinopril (Verified Allergy, Unknown, 01/02/22) Home Meds Active Scripts Prednisone (Prednisone) 10 Mg Tab, 10 MG PO BID for 5 Days, #10 TAB 0 Refills Prov:JEFF BRITT 01/17/24 Acetaminophen (Acetaminophen) 500 Mg Tab, 500 MG PO Q4HPRN, #30 TAB 0 Refills Prov:JEFF BRITT 01/17/24 Acetaminophen W/ Codeine (Tylenol W/Cod #3) 1 Tab Tb, 1 TAB PO QIDP, #10 TAB 0 Refills Prov:JEFF BRITT 12/16/21 Reported Medications Carvedilol (Carvedilol) 12.5 Mg Tab, 1 TAB PO BID 08/29/24 Clopidogrel Bisulfate (CLOPIDOGREL) 75 Mg Tab, 1 TAB PO DAILY 08/29/24 Discontinued Scripts Cephalexin Monohydrate (Cephalexin) 500 Mg Cap, 1 CAP PO QID for 7 Days, #28 CAP 0 Refills Prov:JEFF BRITT 01/17/24 Cephalexin (KEFLEX 500) 500 Mg Cap, 1 CAP PO QID, #28 CAP Prov:KARSTEN LOZA 01/02/22 Cephalexin (KEFLEX 500) 500 Mg Cap, 1 CAP PO BID for 7 Days, #14 CAP 0 Refills Prov:JEFF BRITT 12/16/21 Current Medications Current Medications Medications (Trade) Dose Ordered Sig/Nitin Route PRN Reason Start Time Stop Time Status Last Admin Sodium Chloride (Saline Lock Ns) 10 ml Q8HR IV 08/29/24 14:00 Acetaminophen/ Hydrocodone Bitart ([place] 5/325MG Tab) 1 tab Q4HP PRN PO MODERATE PAIN (4-6 PAIN SCALE) 08/29/24 11:15 Ondansetron HCl (Zofran) 4 mg Q4HP PRN IV NAUSEA / VOMITING 08/29/24 11:15 Docusate Sodium (Colace Capsule) 100 mg BIDPRN PRN PO FOR CONSTIPATION 08/29/24 11:15 Acetaminophen (Tylenol Tablet) 650 mg Q6HP PRN PO PAIN SCALE 1-3 OR TEMP>100.4 08/29/24 11:15 Nitroglycerin (Ntrostat Sublingual) 0.4 mg Q5MINP PRN SL FOR CHEST PAIN 08/29/24 11:15 Morphine Sulfate 2 mg Q30M PRN IV FOR CHEST PAIN 08/29/24 11:15 Clopidogrel Bisulfate (Plavix) 75 mg DAILY PO 08/30/24 10:00 Amlodipine Besylate (Norvasc Tablet) 10 mg DAILY PO 08/30/24 10:00 Hydralazine HCl (Apresoline Injection) 10 mg Q6HP PRN IV SBP>150 08/29/24 11:15 Diagnostic Test (Pha) (Accu-Chek Comfort Curve T) 1 strip ACHS 08/29/24 11:30 08/29/24 11:35 Insulin Human Regular (InsuLIN R) HS SC 08/29/24 22:00 Insulin Human Regular (InsuLIN R) AC SC 08/29/24 11:30 Dextrose 50 ml UD PRN IV Blood Sugar LESS THAN 60 08/29/24 11:30 Review of Systems All 12 item review of systems reviewed with the patient nonsignificant except what is mentioned in the history of present illness H&P Exam Vital Signs/I&O Vital Sign Date Time Temp Pulse Resp B/P (MAP) Pulse Ox O2 Delivery O2 Flow Rate FiO2 08/29/24 12:01 65 16 172/93 (119) 96 08/29/24 09:29 Room Air* 0 21 08/29/24 09:15 97.5 97.5 Physical Exam Patient is awake alert Lungs clear to auscultation bilaterally Cardiac exam regular rate and rhythm GI soft nontender normal Extremities no clubbing Neuro nonfocal Labs/Diagnostic Data Labs/Diagnostic Data Laboratory Tests Test 08/29/24 11:42 08/29/24 11:32 08/29/24 09:55 08/29/24 08:37 Range/Units Troponin I High Sensitivity 39 *H 36 *H 41 *H </=34 ng/L POC Glucose 79 70-106 mg/dl White Blood Count 5.4 # 4.4-10.8 10^3/uL Red Blood Count 2.96 L 4.0-5.20 10^6/uL Hemoglobin 8.9 L 12.2-16.2 g/dL Hematocrit 28.4 L 36.0-46.0 % Mean Corpuscular Volume 95.9 80.0-100.0 fL Mean Corpuscular Hemoglobin 30.2 28.0-32.0 pg Mean Corpuscular Hemoglobin Concent 31.5 L 32.0-36.0 g/dL Red Cell Distribution Width 16.3 H 11.8-14.3 % Platelet Count 305 140-450 10^3/uL Mean Platelet Volume 8.8 6.9-10.8 fL Neutrophils (%) (Auto) 64.1 37.0-80.0 % Lymphocytes (%) (Auto) 27.1 10.0-50.0 % Monocytes (%) (Auto) 5.7 0.0-12.0 % Eosinophils (%) (Auto) 1.8 0.0-7.0 % Basophils (%) (Auto) 1.3 0.0-2.0 % Neutrophils # (Auto) 3.4 1.6-8.6 10 ^3/uL Lymphocytes # (Auto) 1.5 0.4-5.4 10 ^3/uL Monocytes # (Auto) 0.3 0-1.3 10 ^3/uL Eosinophils # (Auto) 0.1 0-0.8 10 ^3/uL Basophils # (Auto) 0.1 0-0.2 10 ^3/uL Nucleated Red Blood Cells 0.1 % Sodium Level 143 # 136-145 mmol/L Potassium Level 4.9 3.5-5.1 mmol/L Chloride Level 110 H 98-107 mmol/L Carbon Dioxide Level 21 20-31 mmol/L Anion Gap 12 5-15 Blood Urea Nitrogen 76 H 9-23 mg/dL Creatinine 11.15 #*H 0.550-1.02 mg/dL Glomerular Filtration Rate Calc 3 >90 mL/min BUN/Creatinine Ratio 6.8 L 10.0-20.0 Serum Glucose 110 H 74-106 mg/dL Calcium Level 9.9 8.7-10.4 mg/dL Phosphorus Level 8.7 H 2.4-5.1 mg/dL Magnesium Level 3.2 H 1.6-2.6 mg/dL Assessment End-stage renal disease requiring hemodialysis 3 times a week Diabetes mellitus type 2 Hypertension History of CVA Anemia of chronic Kidney disease Recommendations Hemodialysis tomorrow Epogen 04209 IV post hemodialysis Resume home medication Renal diet Blood pressure control Social service for outpatient hemodialysis chair time at [facility] dialysis Check hep B surface antigen We will continue to follow Patient seen and examined by myself ER bed three. I discussed my plan of care with the patient and primary nurse at the bedside I would like to thank Karen for the consult, will follow Plan discussed with: Patient JULIETTE COLVIN MD Aug 29, 2024 14:23
[2024-08-29] MEDS: SODIUM CHLOR 0.9% PF (SALINE LOCK) 10ML VIAL/SYR IV SCH (14:55)
--- NOTE | 2024-08-29 16:04 | DVHSR ---
APPROVED REPORT EXAM: Two-dimensional and M-mode echocardiogram with Doppler and color Doppler. Blood Pressure: 150/57 mmHg INDICATION CHF RISK FACTORS Height: 65, Weight: 150 DIMENSIONS LVDd4.7 (3.8-5.7cm)LA (2D)4.3 (1.9-4.0cm)Aortic Root3.4 (2.0-3.7cm) LVDs2.7 (2.5-4.0cm)LA (MM) (1.9-4.0cm)Aortic Cusp Exc1.8 (1.5-2.0cm) EF (%) 73.0 (55-70%)Rt. Atrium4.0 (1.9-4.0cm)Asc. Aorta cm IVSd1.2 (0.7-1.1cm)RV (D) (1.8-2.4cm) PWd1.4 (0.7-1.1cm) Mitral Valve MitralMitral Stenosis E wave1.13m/sMV Mean GR.mmHg A wave1.26m/sMV Peak GR.53mmHg E/A ratio0.92D MVAcm2 DECEL [id number] 1/2 Kifq12qm IVRTmsDop MVA2.38cm2 Aortic Valve Aortic ValveAortic Stenosis V11.12m/Kimberly Mean GR.4mmHg V21.45m/Kimberly Peak GR.8mmHg LVOT Diameter1.9 (1.8-2.4cm)Doppler AVA2.19cm2 Pulmonic Valve V21.20m/s Tricuspid Valve TR Velocity2.55m/s [id number] Conclusion Normal left ventricular size and dimension. Normal left ventricular systolic function estimated ejec tion fraction 55%. There is a grade 1 diastolic dysfunction. Normal right ventricular size and dimension. Normal left ventricular systolic function. Moderately increased right ventricular systolic [id number] mm of mercury. Borderline dilated right and left atria. Normal aortic valve structure and function. Normal mitral valve structure and function. Normal tricuspid valve structure and function. The pulmonary valve is grossly normal. No pericardial effusion.
[2024-08-29] MEDS: SEVELAMER 800 MG TAB PO SCH (18:50)
[2024-08-29] MEDS: hydrALAZINE HCL 20 MG/ML VL IV PRN (19:12)
[2024-08-29 19:45] VITALS: PULSE 69; RESP 16; O2SAT 98
[2024-08-29 21:00] VITALS: BP 138/63; PULSE 73; RESP 20; TEMP 98.1; O2SAT 97
[2024-08-29 21:44] VITALS: BP 130/63; PULSE 73; RESP 20; TEMP 98.1; O2SAT 97
[2024-08-30] VITALS (8 sets, daily range): BP systolic 112–159; BP diastolic 60–77; PULSE 60–81; RESP 16–18; TEMP 97.6–99.3; O2SAT 94–100
[2024-08-30 07:31] LABS: Alkaline Phosphatase 100 U/L (46-116); Anion Gap 14 (5-15); Aspartate Aminotransferase 14 U/L (13-40); BUN/Creatinine Ratio 6.7 (10.0-20.0); Glucose 87 mg/dL (74-106); Potassium 4.9 mmol/L (3.5-5.1); Sodium 142 mmol/L (136-145)
[2024-08-30 07:32] LABS: Total Protein 6.6 g/dL (5.7-8.2)
[2024-08-30 07:44] LABS: Basophils # (auto) 0.1 10 ^3/uL (0-0.2); Basophils % (auto) 1.1 % (0.0-2.0); Eosinophils # (auto) 0.1 10 ^3/uL (0-0.8); Eosinophils % (auto) 2.1 % (0.0-7.0); Hematocrit 28.2 % (36.0-46.0); Hemoglobin 8.7 g/dL (12.2-16.2); Lymphocytes # (auto) 1.7 10 ^3/uL (0.4-5.4); Lymphocytes % (auto) 30.6 % (10.0-50.0); Mean Corpuscular Hemoglobin 30.4 pg (28.0-32.0); Mean Corpuscular Volume 97.9 fL (80.0-100.0); Monocytes # (auto) 0.3 10 ^3/uL (0-1.3); Monocytes % (auto) 5.8 % (0.0-12.0); Neutrophils # (auto) 3.4 10 ^3/uL (1.6-8.6); Neutrophils % (auto) 60.4 % (37.0-80.0); Platelet Count (auto) 295 10^3/uL (140-450); Red Blood Cells 2.88 10^6/uL (4.0-5.20); Red Cell Distribution Width 16.3 % (11.8-14.3); White Blood Cell 5.7 10^3/uL (4.4-10.8)
[2024-08-30 07:46] LABS: Alanine Aminotransferase < 9 U/L (7-40); Bilirubin, Total 0.2 mg/dL (0.2-1.0); Blood Urea Nitrogen 74 mg/dL (9-23); Carbon Dioxide 18 mmol/L (20-31); Chloride 110 mmol/L (98-107)
[2024-08-30] MEDS: CLOPIDOGREL BISULFATE 75 MG TAB PO SCH (08:57)
[2024-08-30] MEDS: amLODIPine BESYLATE 5 MG TAB PO SCH (10:00)
--- NOTE | 2024-08-30 10:34 | DVHPN2 ---
Progress Note Date Seen: Aug 30, 2024 Medical Necessity Reason Pt with a Central, PICC or Fol: No Subjective Patient reports: No new complaints Other Systems: Patient seen and examined by myself in follow-up today Patient examined hemodialysis, blood pressure stable Objective vital signs Vital Sign Date Time Temp Pulse Resp B/P (MAP) Pulse Ox O2 Delivery O2 Flow Rate FiO2 08/30/24 08:43 98.1 60 17 127/64 (85) 98 98.1 08/29/24 21:44 Room Air* 0 21 Total Intake and Output 08/29/24 08/29/24 08/30/24 15:00 23:00 07:00 Intake Total 350 ml Balance 350 ml medications Current Medications Medications Dose Ordered Sig/Nitin Route Start Time Stop Time Status Last Admin Dose Admin Sodium Chloride 10 ml Q8HR IV 08/29/24 14:00 08/30/24 06:31 10 ML Acetaminophen/ Hydrocodone Bitart 1 tab Q4HP PRN PO 08/29/24 11:15 Ondansetron HCl 4 mg Q4HP PRN IV 08/29/24 11:15 Docusate Sodium 100 mg BIDPRN PRN PO 08/29/24 11:15 Acetaminophen 650 mg Q6HP PRN PO 08/29/24 11:15 Nitroglycerin 0.4 mg Q5MINP PRN SL 08/29/24 11:15 Morphine Sulfate 2 mg Q30M PRN IV 08/29/24 11:15 Clopidogrel Bisulfate 75 mg DAILY PO 08/30/24 10:00 08/30/24 08:57 75 MG Amlodipine Besylate 10 mg DAILY PO 08/30/24 10:00 Hydralazine HCl 10 mg Q6HP PRN IV 08/29/24 11:15 08/30/24 01:05 10 MG Diagnostic Test (Pha) 1 strip ACHS 08/29/24 11:30 08/30/24 06:31 1 STRIP Insulin Human Regular HS SC 08/29/24 22:00 Insulin Human Regular AC SC 08/29/24 11:30 Dextrose 50 ml UD PRN IV 08/29/24 11:30 Sevelamer HCl 2,400 mg TIDWM PO 08/29/24 18:00 08/30/24 08:58 2,400 MG Examination: LUNGS:Normal, CVS:Normal, MSK:Normal laboratory and microbiology Laboratory Tests 08/30/24 05:17 Test 08/30/24 05:17 Range/Units Serum Glucose 87 74-106 mg/dL Problem List/Assessment/Plan Problem List/Assessment/Plan End-stage renal disease requiring hemodialysis 3 times a week Diabetes mellitus type 2 Hypertension History of CVA Anemia of chronic Kidney disease Hypophosphatemia Vitamin-D deficiency Recommendations Continue with UF to 3 L as tolerated Epogen 23517 IV post hemodialysis Resume home medication Renal diet Renvela 2400 mg p.o. t.i.d. with meals Social service for outpatient hemodialysis chair time at [facility] dialysis Check hep B surface antigen We will continue to follow Plan discussed with: Patient My Orders My Orders Orders - JULIETTE COLVIN MD Procedure Category Date Status Time Blood Culture FANY 08/29/24 In Process 12:27 Renal Specific DIET 08/29/24 Transmitted Diet(Renal) Dinner Sevelamer (Renagel) PHA 08/29/24 In Process 18:00 Hepatitis B Surface LAB 08/29/24 In Process Antigen 14:30 Echo 2d Mode Cardiac US 08/29/24 Resulted DOP 14:34 Hemodialysis Orders ORDERS 08/30/24 Transmitted 10:30 Dialysis Nursing [facility] 08/30/24 In Process Message 10:30 Heparin Sodium PHA 08/30/24 Logged (Porcine) 10:30 Heparin Sodium PHA 08/30/24 Logged (Porcine) 10:30 Sodium Chloride 0.9% PHA 08/30/24 Logged 10:30 Document Fluid Input [place] 08/30/24 In Process And Outpu 10:30 Epoetin [place]-Epbx PHA 08/30/24 Logged (Retacrit) 21:00 JULIETTE COLVIN MD Aug 30, 2024 10:34
[2024-08-30] MEDS: SODIUM CHL 0.9% 1000 ML BAG XX ONE (13:10)
[2024-08-30] MEDS ORDERED: AMLO1TAB22 PO (14:03)
[2024-08-30] MEDS ORDERED: ASPI-543 PO (14:03)
[2024-08-30] MEDS ORDERED: OMEGCAP20 OR (14:03)
[2024-08-30] MEDS ORDERED: ROSU40TA81 PO (14:03)
[2024-08-30] MEDS ORDERED: HYDR100T10 PO (14:03)
[2024-08-30] MEDS ORDERED: DOCU-94 PO (14:03)
[2024-08-30] MEDS ORDERED: MULT-1018 PO (14:03)
[2024-08-30] MEDS ORDERED: INSU100I70 SC (14:03)
[2024-08-30] MEDS ORDERED: TIMO0.5S28 EACHEYE (14:03)
--- NOTE | 2024-08-30 14:37 | DVHPN2 ---
Reviewed: Care Plan, H&P, Labs, Medications, Previous Orders, Radiology Changes from previous H/P or p: No Changes Eyes: No Pain, No Vision change, No Conjunctivae inflammation, No Eyelid inflammation, No Other, No Redness ENT: No Ear pain, No Ear discharge, No Nose pain, No Nose discharge, No Nose congestion, No Mouth pain, No Mouth swelling, No Throat pain, No Throat swelling, No Other Cardiovascular: No Chest Pain, No Palpitations, No Orthopnea, No Paroxysmal Noc. Dyspnea, No Edema, No Lt Headedness, No Other Respiratory: No Cough, No Dry, No Shortness of breath, No SOB with excertion, No Wheezing, No Hemoptysis, No Pleuritic Pain, No Sputum, No Other Gastrointestinal: No Nausea, No Vomiting, No Abdominal Pain, No Diarrhea, No Constipation, No Melena, No Hematochezia, No Other Genitourinary: No Dysuria, No Frequency, No Incontinence, No Hematuria, No Retention, No Other Musculoskeletal: No other, No neck pain, No shoulder pain, No arm pain, No back pain, No hand pain, No leg pain, No foot pain Skin: No Rash, No Lesions, No Jaundice, No Bruising, No Other Objective Vitals Vital Signs Date Time Temp Pulse Resp B/P (MAP) Pulse Ox O2 Delivery O2 Flow Rate FiO2 08/30/24 13:08 97.6 64 16 159/77 (104) 98 97.6 08/30/24 07:45 Room Air* 0 21 Intake/Output Intake and Output 08/30/24 07:00 Intake Total 350 ml Balance 350 ml Intake Oral 350 ml # Voids 2 Medications Current Medications Medications Dose Ordered Sig/Nitin Route Start Time Stop Time Status Last Admin Dose Admin Sodium Chloride 10 ml Q8HR IV 08/29/24 14:00 08/30/24 13:32 10 ML Acetaminophen/ Hydrocodone Bitart 1 tab Q4HP PRN PO 08/29/24 11:15 Ondansetron HCl 4 mg Q4HP PRN IV 08/29/24 11:15 Docusate Sodium 100 mg BIDPRN PRN PO 08/29/24 11:15 Acetaminophen 650 mg Q6HP PRN PO 08/29/24 11:15 Nitroglycerin 0.4 mg Q5MINP PRN SL 08/29/24 11:15 Morphine Sulfate 2 mg Q30M PRN IV 08/29/24 11:15 Clopidogrel Bisulfate 75 mg DAILY PO 08/30/24 10:00 08/30/24 08:57 75 MG Amlodipine Besylate 10 mg DAILY PO 08/30/24 10:00 Hydralazine HCl 10 mg Q6HP PRN IV 08/29/24 11:15 08/30/24 01:05 10 MG Diagnostic Test (Pha) 1 strip ACHS 08/29/24 11:30 08/30/24 11:30 1 STRIP Insulin Human Regular HS SC 08/29/24 22:00 Insulin Human Regular AC SC 08/29/24 11:30 Dextrose 50 ml UD PRN IV 08/29/24 11:30 Sevelamer HCl 2,400 mg TIDWM PO 08/29/24 18:00 08/30/24 13:27 2,400 MG Laboratory Results Laboratory Tests 08/30/24 05:17 Chemistry Test 08/30/24 05:17 Albumin 4.0 g/dL (3.2-4.8) Calcium Level 10.0 mg/dL (8.7-10.4) Total Protein 6.6 g/dL (5.7-8.2) LFT Test 08/30/24 05:17 Alanine Aminotransferase (ALT) < 9 U/L (7-40) Alkaline Phosphatase 100 U/L (46-116) Aspartate Amino Transferase (AST) 14 U/L (13-40) Total Bilirubin 0.2 mg/dL (0.2-1.0) Labs and/or images reviewed: Labs reviewed by me, Image(s) reviewed by me Assessment/Plan Assessment/Plan End-stage renal disease requiring hemodialysis 3 times a week: Consult by Dr. Asif appreciated Diabetes mellitus type 2 Hypertension History of CVA Anemia of chronic Kidney disease Hypophosphatemia Vitamin-D deficiency Noncompliance patient missed hemodialysis while visiting [place] Patient is full code Time spent 65 minutes Advanced care planning time 20 minutes Plan discussed with: Patient Date of Service: Aug 30, 2024 Billing Provider: FELICIA NAM MD Common Visit Codes: [id number] CARE 30-74 MIN Secondary Visit Codes: [id number] CARE PLAN 30 MINUTES FELICIA NAM MD Aug 30, 2024 14:37
[2024-08-30] MEDS: EPOETIN ALFA-EPBX 10,000 UNIT/1ML VIAL SC ONE (20:57)
[2024-08-31] VITALS (8 sets, daily range): BP systolic 119–141; BP diastolic 53–70; PULSE 66–72; RESP 15–19; TEMP 98.3–99.2; O2SAT 95–99
--- NOTE | 2024-08-31 08:49 | DVHPN2 ---
Reviewed: Care Plan, H&P, Labs, Medications, Previous Orders, Radiology Changes from previous H/P or p: No Changes Eyes: No Pain, No Vision change, No Conjunctivae inflammation, No Eyelid inflammation, No Other, No Redness ENT: No Ear pain, No Ear discharge, No Nose pain, No Nose discharge, No Nose congestion, No Mouth pain, No Mouth swelling, No Throat pain, No Throat swelling, No Other Cardiovascular: No Chest Pain, No Palpitations, No Orthopnea, No Paroxysmal Noc. Dyspnea, No Edema, No Lt Headedness, No Other Respiratory: No Cough, No Dry, No Shortness of breath, No SOB with excertion, No Wheezing, No Hemoptysis, No Pleuritic Pain, No Sputum, No Other Gastrointestinal: No Nausea, No Vomiting, No Abdominal Pain, No Diarrhea, No Constipation, No Melena, No Hematochezia, No Other Genitourinary: No Dysuria, No Frequency, No Incontinence, No Hematuria, No Retention, No Other Musculoskeletal: No other, No neck pain, No shoulder pain, No arm pain, No back pain, No hand pain, No leg pain, No foot pain Skin: No Rash, No Lesions, No Jaundice, No Bruising, No Other Objective Vitals Vital Signs Date Time Temp Pulse Resp B/P (MAP) Pulse Ox O2 Delivery O2 Flow Rate FiO2 08/31/24 07:30 Room Air* 0 21 08/31/24 05:00 98.3 69 16 129/65 (86) 98 98.3 Intake/Output Intake and Output 08/31/24 07:00 Intake Total 700 ml Balance 700 ml Intake Oral 700 ml # Voids 7 Medications Current Medications Medications Dose Ordered Sig/Nitin Route Start Time Stop Time Status Last Admin Dose Admin Sodium Chloride 10 ml Q8HR IV 08/29/24 14:00 08/31/24 05:45 10 ML Acetaminophen/ Hydrocodone Bitart 1 tab Q4HP PRN PO 08/29/24 11:15 Ondansetron HCl 4 mg Q4HP PRN IV 08/29/24 11:15 Docusate Sodium 100 mg BIDPRN PRN PO 08/29/24 11:15 Acetaminophen 650 mg Q6HP PRN PO 08/29/24 11:15 Nitroglycerin 0.4 mg Q5MINP PRN SL 08/29/24 11:15 Morphine Sulfate 2 mg Q30M PRN IV 08/29/24 11:15 Clopidogrel Bisulfate 75 mg DAILY PO 08/30/24 10:00 08/30/24 08:57 75 MG Amlodipine Besylate 10 mg DAILY PO 08/30/24 10:00 Hydralazine HCl 10 mg Q6HP PRN IV 08/29/24 11:15 08/30/24 16:30 10 MG Diagnostic Test (Pha) 1 strip ACHS 08/29/24 11:30 08/31/24 05:45 1 STRIP Insulin Human Regular HS SC 08/29/24 22:00 Insulin Human Regular AC SC 08/29/24 11:30 Dextrose 50 ml UD PRN IV 08/29/24 11:30 Sevelamer HCl 2,400 mg TIDWM PO 08/29/24 18:00 08/30/24 17:51 2,400 MG Laboratory Results Laboratory Tests 08/30/24 05:17 Microbiology Microbiology Date/Time Source Procedure Growth Status 08/29/24 17:08 Blood Blood Culture - Preliminary NO GROWTH AFTER 24 HOURS OF INCUBATION. Resulted Labs and/or images reviewed: Labs reviewed by me, Image(s) reviewed by me Assessment/Plan Assessment/Plan End-stage renal disease requiring hemodialysis 3 times a week: Consult by Dr. Asif appreciated Diabetes mellitus type 2 Hypertension History of CVA Anemia of chronic Kidney disease Hypophosphatemia Vitamin-D deficiency Noncompliance patient missed hemodialysis while visiting [place] Patient is full code Time spent 45 minutes Hepatitis panel pending Social service working on arranging chair time Plan discussed with: Patient My Orders Orders - FELICIA NAM MD Procedure Category Date Status Time * System Support Administrator CONS 08/30/24 Transmitted Consult 14:41 * System Support Administrator CONS 08/30/24 Transmitted Consult Comprehensive LAB 08/30/24 In Process Hepatitis Panel 15:49 Date of Service: Aug 31, 2024 Billing Provider: FELICIA NAM MD Common Visit Codes: [id number] INP/OBS CARE(HIGH) FELICIA NAM MD Aug 31, 2024 08:49
[2024-08-31 09:07] LABS: Hepatitis B Core Total AB Negative (Negative)
[2024-08-31 11:21] LABS: Hepatitis A Total Antibody Positive (Negative); Hepatitis B Surface Antibody Negative (Negative); Hepatitis B Surface Antigen Negative (Negative); Hepatitis C Antibody Negative (Negative)
--- NOTE | 2024-08-31 16:24 | DVHPN2 ---
Progress Note Date Seen: Aug 31, 2024 Medical Necessity Reason Pt with a Central, PICC or Fol: No Objective vital signs Vital Sign Date Time Temp Pulse Resp B/P (MAP) Pulse Ox O2 Delivery O2 Flow Rate FiO2 08/31/24 13:00 98.7 68 17 132/68 (89) 99 98.7 08/31/24 07:30 Room Air* 0 21 Total Intake and Output 08/30/24 08/30/24 08/31/24 15:00 23:00 07:00 Intake Total 600 ml 100 ml Balance 600 ml 100 ml medications Current Medications Medications Dose Ordered Sig/Nitin Route Start Time Stop Time Status Last Admin Dose Admin Sodium Chloride 10 ml Q8HR IV 08/29/24 14:00 08/31/24 11:21 10 ML Acetaminophen/ Hydrocodone Bitart 1 tab Q4HP PRN PO 08/29/24 11:15 Ondansetron HCl 4 mg Q4HP PRN IV 08/29/24 11:15 Docusate Sodium 100 mg BIDPRN PRN PO 08/29/24 11:15 Acetaminophen 650 mg Q6HP PRN PO 08/29/24 11:15 Nitroglycerin 0.4 mg Q5MINP PRN SL 08/29/24 11:15 Morphine Sulfate 2 mg Q30M PRN IV 08/29/24 11:15 Clopidogrel Bisulfate 75 mg DAILY PO 08/30/24 10:00 08/31/24 09:51 75 MG Amlodipine Besylate 10 mg DAILY PO 08/30/24 10:00 08/31/24 09:52 10 MG Hydralazine HCl 10 mg Q6HP PRN IV 08/29/24 11:15 08/30/24 16:30 10 MG Diagnostic Test (Pha) 1 strip ACHS 08/29/24 11:30 08/31/24 11:20 1 STRIP Insulin Human Regular HS SC 08/29/24 22:00 Insulin Human Regular AC SC 08/29/24 11:30 Dextrose 50 ml UD PRN IV 08/29/24 11:30 Sevelamer HCl 2,400 mg TIDWM PO 08/29/24 18:00 08/31/24 11:23 2,400 MG laboratory and microbiology Laboratory Tests 08/30/24 05:17 Test 08/30/24 05:17 Range/Units Serum Glucose 87 74-106 mg/dL Microbiology Date/Time Source Procedure Growth Status 08/29/24 17:08 Blood Blood Culture - Preliminary NO GROWTH AFTER 24 HOURS OF INCUBATION. Resulted Problem List/Assessment/Plan Problem List/Assessment/Plan End-stage renal disease requiring hemodialysis 3 times a week Diabetes mellitus type 2 Hypertension History of CVA Anemia of chronic Kidney disease Hypophosphatemia Vitamin-D deficiency Recommendations Hemodialysis tomorrow Epogen 06229 IV post hemodialysis Resume home medication Renal diet Renvela 2400 mg p.o. t.i.d. with meals Social service for outpatient hemodialysis chair time at [facility] dialysis hep B surface antigen is negative We will continue to follow Plan discussed with: Patient JULIETTE COLVIN MD Aug 31, 2024 16:24
[2024-09-01] VITALS (8 sets, daily range): BP systolic 97–146; BP diastolic 48–72; PULSE 62–76; RESP 16–18; TEMP 98.1–99.5; O2SAT 96–98
[2024-09-01] MEDS: SODIUM CHL 0.9% 1000 ML BAG XX ONE (07:00)
--- NOTE | 2024-09-01 10:12 | DVHPN2 ---
Reviewed: Care Plan, H&P, Labs, Medications, Previous Orders, Radiology Changes from previous H/P or p: No Changes Eyes: No Pain, No Vision change, No Conjunctivae inflammation, No Eyelid inflammation, No Other, No Redness ENT: No Ear pain, No Ear discharge, No Nose pain, No Nose discharge, No Nose congestion, No Mouth pain, No Mouth swelling, No Throat pain, No Throat swelling, No Other Cardiovascular: No Chest Pain, No Palpitations, No Orthopnea, No Paroxysmal Noc. Dyspnea, No Edema, No Lt Headedness, No Other Respiratory: No Cough, No Dry, No Shortness of breath, No SOB with excertion, No Wheezing, No Hemoptysis, No Pleuritic Pain, No Sputum, No Other Gastrointestinal: No Nausea, No Vomiting, No Abdominal Pain, No Diarrhea, No Constipation, No Melena, No Hematochezia, No Other Genitourinary: No Dysuria, No Frequency, No Incontinence, No Hematuria, No Retention, No Other Musculoskeletal: No other, No neck pain, No shoulder pain, No arm pain, No back pain, No hand pain, No leg pain, No foot pain Skin: No Rash, No Lesions, No Jaundice, No Bruising, No Other Objective Vitals Vital Signs Date Time Temp Pulse Resp B/P (MAP) Pulse Ox O2 Delivery O2 Flow Rate FiO2 09/01/24 08:31 99.5 62 18 97/58 (71) 98 99.5 09/01/24 07:55 Room Air* 0 21 Intake/Output Intake and Output 09/01/24 07:00 Intake Total 800 ml Output Total 800 ml Balance 0 ml Intake Oral 800 ml Output Urine Total 800 ml # Voids 2 Medications Current Medications Medications Dose Ordered Sig/Nitin Route Start Time Stop Time Status Last Admin Dose Admin Sodium Chloride 10 ml Q8HR IV 08/29/24 14:00 09/01/24 05:23 10 ML Acetaminophen/ Hydrocodone Bitart 1 tab Q4HP PRN PO 08/29/24 11:15 Ondansetron HCl 4 mg Q4HP PRN IV 08/29/24 11:15 Docusate Sodium 100 mg BIDPRN PRN PO 08/29/24 11:15 Acetaminophen 650 mg Q6HP PRN PO 08/29/24 11:15 Nitroglycerin 0.4 mg Q5MINP PRN SL 08/29/24 11:15 Morphine Sulfate 2 mg Q30M PRN IV 08/29/24 11:15 Clopidogrel Bisulfate 75 mg DAILY PO 08/30/24 10:00 09/01/24 08:36 75 MG Amlodipine Besylate 10 mg DAILY PO 08/30/24 10:00 08/31/24 09:52 10 MG Hydralazine HCl 10 mg Q6HP PRN IV 08/29/24 11:15 08/30/24 16:30 10 MG Diagnostic Test (Pha) 1 strip ACHS 08/29/24 11:30 09/01/24 06:22 1 STRIP Insulin Human Regular HS SC 08/29/24 22:00 Insulin Human Regular AC SC 08/29/24 11:30 Dextrose 50 ml UD PRN IV 08/29/24 11:30 Sevelamer HCl 2,400 mg TIDWM PO 08/29/24 18:00 09/01/24 08:36 2,400 MG Laboratory Results Laboratory Tests 08/30/24 05:17 Microbiology Microbiology Date/Time Source Procedure Growth Status 08/29/24 17:08 Blood Blood Culture - Preliminary NO GROWTH AFTER 48 HOURS OF INCUBATION. Resulted Labs and/or images reviewed: Labs reviewed by me, Image(s) reviewed by me Assessment/Plan Assessment/Plan End-stage renal disease requiring hemodialysis 3 times a week: Consult by Dr. Asif appreciated Diabetes mellitus type 2 Hypertension History of CVA Anemia of chronic Kidney disease Hypophosphatemia Vitamin-D deficiency Noncompliance patient missed hemodialysis while visiting [place] Patient is full code Time spent 45 minutes Hepatitis panel negative for hep B and hep C Social service working on arranging chair time Plan discussed with: Patient Date of Service: Sep 01, 2024 Billing Provider: FELICIA NAM MD Common Visit Codes: [id number] INP/OBS CARE(HIGH) FELICIA NAM MD Sep 01, 2024 10:12
--- NOTE | 2024-09-01 14:36 | DVHPN2 ---
Progress Note Date Seen: Sep 01, 2024 Medical Necessity Reason Pt with a Central, PICC or Fol: No Subjective Patient reports: No new complaints Other Systems: Patient seen and examined by myself today in follow-up Patient examined hemodialysis, blood pressure stable Objective vital signs Vital Sign Date Time Temp Pulse Resp B/P (MAP) Pulse Ox O2 Delivery O2 Flow Rate FiO2 09/01/24 12:36 98.1 71 18 146/72 (96) 96 98.1 09/01/24 07:55 Room Air* 0 21 Total Intake and Output 08/31/24 08/31/24 09/01/24 15:00 23:00 07:00 Intake Total 200 ml 400 ml 200 ml Output Total 800 ml Balance 200 ml -400 ml 200 ml medications Current Medications Medications Dose Ordered Sig/Nitin Route Start Time Stop Time Status Last Admin Dose Admin Sodium Chloride 10 ml Q8HR IV 08/29/24 14:00 09/01/24 13:50 10 ML Acetaminophen/ Hydrocodone Bitart 1 tab Q4HP PRN PO 08/29/24 11:15 Ondansetron HCl 4 mg Q4HP PRN IV 08/29/24 11:15 Docusate Sodium 100 mg BIDPRN PRN PO 08/29/24 11:15 Acetaminophen 650 mg Q6HP PRN PO 08/29/24 11:15 Nitroglycerin 0.4 mg Q5MINP PRN SL 08/29/24 11:15 Morphine Sulfate 2 mg Q30M PRN IV 08/29/24 11:15 Clopidogrel Bisulfate 75 mg DAILY PO 08/30/24 10:00 09/01/24 08:36 75 MG Amlodipine Besylate 10 mg DAILY PO 08/30/24 10:00 08/31/24 09:52 10 MG Hydralazine HCl 10 mg Q6HP PRN IV 08/29/24 11:15 08/30/24 16:30 10 MG Diagnostic Test (Pha) 1 strip ACHS 08/29/24 11:30 09/01/24 13:50 1 STRIP Insulin Human Regular HS SC 08/29/24 22:00 Insulin Human Regular AC SC 08/29/24 11:30 Dextrose 50 ml UD PRN IV 08/29/24 11:30 Sevelamer HCl 2,400 mg TIDWM PO 08/29/24 18:00 09/01/24 08:36 2,400 MG laboratory and microbiology Laboratory Tests 08/30/24 05:17 Test 08/30/24 05:17 Range/Units Serum Glucose 87 74-106 mg/dL Microbiology Date/Time Source Procedure Growth Status 08/29/24 17:08 Blood Blood Culture - Preliminary NO GROWTH AFTER 48 HOURS OF INCUBATION. Resulted Problem List/Assessment/Plan Problem List/Assessment/Plan End-stage renal disease requiring hemodialysis 3 times a week Diabetes mellitus type 2 Hypertension History of CVA Anemia of chronic Kidney disease Hyperphosphatemia Vitamin-D deficiency Recommendations CONTINUE WITH UF TO 3 L TOLERATED Epogen 69906 IV post hemodialysis Resume home medication Renal diet Renvela 2400 mg p.o. t.i.d. with meals Ergocalciferol 82799 p.o. q.week Awaiting outpatient hemodialysis chair time bending and shortness a approval hep B surface antigen is negative We will continue to follow Plan discussed with: Patient, Son My Orders My Orders Orders - JULIETTE COLVIN MD Procedure Category Date Status Time Hemodialysis Orders ORDERS 09/01/24 Transmitted 07:00 Dialysis Nursing GUILLE 09/01/24 In Process Message 07:00 Document Fluid Input GIULLE 09/01/24 In Process And Outpu 07:00 Epoetin Cliff-Epbx PHA 09/01/24 In Process (Retacrit) 21:00 JULIETTE COLVIN MD Sep 01, 2024 14:36
[2024-09-01] MEDS: ERGOCALCIFEROL 50,000 UNIT(1.25MG) CAP PO SCH (17:14)
[2024-09-01] MEDS: EPOETIN ALFA-EPBX 10,000 UNIT/1ML VIAL SC ONE (21:37)
[2024-09-02 05:00] VITALS: BP 118/58; PULSE 79; RESP 18; TEMP 98.3; O2SAT 98
[2024-09-02 08:00] VITALS: PULSE 66; PULSE 70; RESP 18; O2SAT 100
--- NOTE | 2024-09-02 08:46 | DVHPN2 ---
Reviewed: Care Plan, H&P, Labs, Medications, Previous Orders, Radiology Changes from previous H/P or p: No Changes Eyes: No Pain, No Vision change, No Conjunctivae inflammation, No Eyelid inflammation, No Other, No Redness ENT: No Ear pain, No Ear discharge, No Nose pain, No Nose discharge, No Nose congestion, No Mouth pain, No Mouth swelling, No Throat pain, No Throat swelling, No Other Cardiovascular: No Chest Pain, No Palpitations, No Orthopnea, No Paroxysmal Noc. Dyspnea, No Edema, No Lt Headedness, No Other Respiratory: No Cough, No Dry, No Shortness of breath, No SOB with excertion, No Wheezing, No Hemoptysis, No Pleuritic Pain, No Sputum, No Other Gastrointestinal: No Nausea, No Vomiting, No Abdominal Pain, No Diarrhea, No Constipation, No Melena, No Hematochezia, No Other Genitourinary: No Dysuria, No Frequency, No Incontinence, No Hematuria, No Retention, No Other Musculoskeletal: No other, No neck pain, No shoulder pain, No arm pain, No back pain, No hand pain, No leg pain, No foot pain Skin: No Rash, No Lesions, No Jaundice, No Bruising, No Other Objective Vitals Vital Signs Date Time Temp Pulse Resp B/P (MAP) Pulse Ox O2 Delivery O2 Flow Rate FiO2 09/02/24 05:00 98.3 79 18 118/58 (78) 98 98.3 09/01/24 20:00 Room Air* 0 21 Intake/Output Intake and Output 09/02/24 07:00 Intake Total 810 ml Balance 810 ml Intake Oral 810 ml # Voids 4 # Bowel Movements 2 Medications Current Medications Medications Dose Ordered Sig/Nitin Route Start Time Stop Time Status Last Admin Dose Admin Sodium Chloride 10 ml Q8HR IV 08/29/24 14:00 09/02/24 07:08 10 ML Acetaminophen/ Hydrocodone Bitart 1 tab Q4HP PRN PO 08/29/24 11:15 Ondansetron HCl 4 mg Q4HP PRN IV 08/29/24 11:15 Docusate Sodium 100 mg BIDPRN PRN PO 08/29/24 11:15 Acetaminophen 650 mg Q6HP PRN PO 08/29/24 11:15 Nitroglycerin 0.4 mg Q5MINP PRN SL 08/29/24 11:15 Morphine Sulfate 2 mg Q30M PRN IV 08/29/24 11:15 Clopidogrel Bisulfate 75 mg DAILY PO 08/30/24 10:00 09/01/24 08:36 75 MG Amlodipine Besylate 10 mg DAILY PO 08/30/24 10:00 08/31/24 09:52 10 MG Hydralazine HCl 10 mg Q6HP PRN IV 08/29/24 11:15 08/30/24 16:30 10 MG Diagnostic Test (Pha) 1 strip ACHS 08/29/24 11:30 09/02/24 07:09 1 STRIP Insulin Human Regular HS SC 08/29/24 22:00 Insulin Human Regular AC SC 08/29/24 11:30 Dextrose 50 ml UD PRN IV 08/29/24 11:30 Sevelamer HCl 2,400 mg TIDWM PO 08/29/24 18:00 09/01/24 17:06 2,400 MG Ergocalciferol 50,000 unit Q7D PO 09/01/24 14:45 09/01/24 17:14 50,000 UNIT Laboratory Results Laboratory Tests 08/30/24 05:17 Microbiology Microbiology Date/Time Source Procedure Growth Status 08/29/24 17:08 Blood Blood Culture - Preliminary NO GROWTH AFTER 72 HOURS OF INCUBATION. Resulted Labs and/or images reviewed: Labs reviewed by me, Image(s) reviewed by me Assessment/Plan Assessment/Plan End-stage renal disease requiring hemodialysis 3 times a week: Consult by Dr. Asif appreciated Diabetes mellitus type 2 Hypertension History of CVA Anemia of chronic Kidney disease Hypophosphatemia Vitamin-D deficiency Noncompliance patient missed hemodialysis while visiting [place] Patient is full code Time spent 45 minutes Hepatitis panel negative for hep B and hep C Awaiting chart time from [facility] Plan discussed with: Patient Date of Service: Sep 02, 2024 Billing Provider: FELICIA NAM MD Common Visit Codes: [id number] INP/OBS CARE(HIGH) FELICIA NAM MD Sep 02, 2024 08:46
[2024-09-02 09:00] VITALS: BP 114/61; PULSE 70; RESP 18; TEMP 98.4; O2SAT 100
--- NOTE | 2024-09-02 09:55 | DVHPN2 ---
Progress Note Date Seen: Sep 02, 2024 Medical Necessity Reason Pt with a Central, PICC or Fol: No Subjective Patient reports: No new complaints Other Systems: Patient seen and examined by myself today in follow-up Objective vital signs Vital Sign Date Time Temp Pulse Resp B/P (MAP) Pulse Ox O2 Delivery O2 Flow Rate FiO2 09/02/24 09:00 98.4 70 18 114/61 (78) 100 98.4 09/01/24 20:00 Room Air* 0 21 Total Intake and Output 09/01/24 09/01/24 09/02/24 15:00 23:00 07:00 Intake Total 700 ml 110 ml Balance 700 ml 110 ml medications Current Medications Medications Dose Ordered Sig/Nitin Route Start Time Stop Time Status Last Admin Dose Admin Sodium Chloride 10 ml Q8HR IV 08/29/24 14:00 09/02/24 07:08 10 ML Acetaminophen/ Hydrocodone Bitart 1 tab Q4HP PRN PO 08/29/24 11:15 Ondansetron HCl 4 mg Q4HP PRN IV 08/29/24 11:15 Docusate Sodium 100 mg BIDPRN PRN PO 08/29/24 11:15 Acetaminophen 650 mg Q6HP PRN PO 08/29/24 11:15 Nitroglycerin 0.4 mg Q5MINP PRN SL 08/29/24 11:15 Morphine Sulfate 2 mg Q30M PRN IV 08/29/24 11:15 Clopidogrel Bisulfate 75 mg DAILY PO 08/30/24 10:00 09/01/24 08:36 75 MG Amlodipine Besylate 10 mg DAILY PO 08/30/24 10:00 08/31/24 09:52 10 MG Hydralazine HCl 10 mg Q6HP PRN IV 08/29/24 11:15 08/30/24 16:30 10 MG Diagnostic Test (Pha) 1 strip ACHS 08/29/24 11:30 09/02/24 07:09 1 STRIP Insulin Human Regular HS SC 08/29/24 22:00 Insulin Human Regular AC SC 08/29/24 11:30 Dextrose 50 ml UD PRN IV 08/29/24 11:30 Sevelamer HCl 2,400 mg TIDWM PO 08/29/24 18:00 09/01/24 17:06 2,400 MG Ergocalciferol 50,000 unit Q7D PO 09/01/24 14:45 09/01/24 17:14 50,000 UNIT laboratory and microbiology Laboratory Tests 08/30/24 05:17 Test 08/30/24 05:17 Range/Units Serum Glucose 87 74-106 mg/dL Microbiology Date/Time Source Procedure Growth Status 08/29/24 17:08 Blood Blood Culture - Preliminary NO GROWTH AFTER 72 HOURS OF INCUBATION. Resulted Problem List/Assessment/Plan Problem List/Assessment/Plan End-stage renal disease requiring hemodialysis 3 times a week Diabetes mellitus type 2 Hypertension History of CVA Anemia of chronic Kidney disease Hyperphosphatemia Vitamin-D deficiency Recommendations Next hemodialysis 09/04 Epogen 28206 IV post hemodialysis Resume home medication Renal diet Renvela 2400 mg p.o. t.i.d. with meals Ergocalciferol 67456 p.o. q.week Awaiting outpatient hemodialysis chair time pending insurance approval hep B surface antigen is negative We will continue to follow Plan discussed with: Patient My Orders My Orders Orders - JULIETTE COLVIN MD Procedure Category Date Status Time Ergocalciferol PHA 09/01/24 In Process (Vitamin D 50,000 14:45 JULIETTE COLVIN MD Sep 02, 2024 09:55
[2024-09-02 13:00] VITALS: BP 141/68; PULSE 70; RESP 20; TEMP 99.2; O2SAT 96
[2024-09-02 17:00] VITALS: BP 111/51; PULSE 77; RESP 18; TEMP 98.6; O2SAT 94
[2024-09-02 20:00] VITALS: PULSE 75
[2024-09-03] VITALS (8 sets, daily range): BP systolic 113–152; BP diastolic 47–63; PULSE 68–74; RESP 16–18; TEMP 98.1–99.6; O2SAT 95–100
[2024-09-03] MEDS: guaiFENesin-DM 100/10mg/5ml SYR PO PRN (02:26)
--- NOTE | 2024-09-03 10:24 | DVHPN2 ---
Reviewed: Care Plan, H&P, Labs, Medications, Previous Orders, Radiology Changes from previous H/P or p: No Changes Eyes: No Pain, No Vision change, No Conjunctivae inflammation, No Eyelid inflammation, No Other, No Redness ENT: No Ear pain, No Ear discharge, No Nose pain, No Nose discharge, No Nose congestion, No Mouth pain, No Mouth swelling, No Throat pain, No Throat swelling, No Other Cardiovascular: No Chest Pain, No Palpitations, No Orthopnea, No Paroxysmal Noc. Dyspnea, No Edema, No Lt Headedness, No Other Respiratory: No Cough, No Dry, No Shortness of breath, No SOB with excertion, No Wheezing, No Hemoptysis, No Pleuritic Pain, No Sputum, No Other Gastrointestinal: No Nausea, No Vomiting, No Abdominal Pain, No Diarrhea, No Constipation, No Melena, No Hematochezia, No Other Genitourinary: No Dysuria, No Frequency, No Incontinence, No Hematuria, No Retention, No Other Musculoskeletal: No other, No neck pain, No shoulder pain, No arm pain, No back pain, No hand pain, No leg pain, No foot pain Skin: No Rash, No Lesions, No Jaundice, No Bruising, No Other Objective Vitals Vital Signs Date Time Temp Pulse Resp B/P (MAP) Pulse Ox O2 Delivery O2 Flow Rate FiO2 09/03/24 09:23 152/62 09/03/24 08:43 98.4 72 16 98 98.4 09/02/24 20:06 Room Air* 0 21 Intake/Output Intake and Output 09/03/24 07:00 Intake Total 910 ml Balance 910 ml Intake Oral 910 ml # Voids 1 # Bowel Movements 1 Medications Current Medications Medications Dose Ordered Sig/Nitin Route Start Time Stop Time Status Last Admin Dose Admin Sodium Chloride 10 ml Q8HR IV 08/29/24 14:00 09/03/24 05:19 10 ML Acetaminophen/ Hydrocodone Bitart 1 tab Q4HP PRN PO 08/29/24 11:15 Ondansetron HCl 4 mg Q4HP PRN IV 08/29/24 11:15 Docusate Sodium 100 mg BIDPRN PRN PO 08/29/24 11:15 Acetaminophen 650 mg Q6HP PRN PO 08/29/24 11:15 Nitroglycerin 0.4 mg Q5MINP PRN SL 08/29/24 11:15 Morphine Sulfate 2 mg Q30M PRN IV 08/29/24 11:15 Clopidogrel Bisulfate 75 mg DAILY PO 08/30/24 10:00 09/03/24 09:22 75 MG Amlodipine Besylate 10 mg DAILY PO 08/30/24 10:00 09/03/24 09:23 10 MG Hydralazine HCl 10 mg Q6HP PRN IV 08/29/24 11:15 08/30/24 16:30 10 MG Diagnostic Test (Pha) 1 strip ACHS 08/29/24 11:30 09/03/24 06:25 1 STRIP Insulin Human Regular HS SC 08/29/24 22:00 Insulin Human Regular AC SC 08/29/24 11:30 Dextrose 50 ml UD PRN IV 08/29/24 11:30 Sevelamer HCl 2,400 mg TIDWM PO 08/29/24 18:00 09/03/24 08:08 2,400 MG Ergocalciferol 50,000 unit Q7D PO 09/01/24 14:45 09/01/24 17:14 50,000 UNIT Guaifenesin/ Dextromethorphan 10 ml Q6HPRN PRN PO 09/03/24 02:15 09/03/24 02:26 10 ML Laboratory Results Laboratory Tests 08/30/24 05:17 Microbiology Microbiology Date/Time Source Procedure Growth Status 08/29/24 17:08 Blood Blood Culture - Preliminary NO GROWTH AFTER 72 HOURS OF INCUBATION. Resulted Labs and/or images reviewed: Labs reviewed by me, Image(s) reviewed by me Assessment/Plan Assessment/Plan End-stage renal disease requiring hemodialysis 3 times a week: Consult by Dr. Asif appreciated Diabetes mellitus type 2 Hypertension History of CVA Anemia of chronic Kidney disease Hypophosphatemia Vitamin-D deficiency Noncompliance patient missed hemodialysis while visiting [place] Patient is full code Time spent 45 minutes Hepatitis panel negative for hep B and hep C Awaiting chart [facility] from [facility] discussed with: Patient Date of Service: Sep 03, 2024 Billing Provider: FELICIA NAM MD Common Visit Codes: [id number] INP/OBS CARE(HIGH) FELICIA NAM MD Sep 03, 2024 10:24
[2024-09-03] MEDS: HYDROcodone-ACET 5/325MG TAB PO PRN (11:22)
--- NOTE | 2024-09-03 12:10 | DVHPN2 ---
Progress Note Date Seen: Sep 03, 2024 Medical Necessity Reason Pt with a Central, PICC or Fol: No Subjective Patient reports: No new complaints Other Systems: Patient seen and examined by myself today in follow-up Objective vital signs Vital Sign Date Time Temp Pulse Resp B/P (MAP) Pulse Ox O2 Delivery O2 Flow Rate FiO2 09/03/24 09:23 152/62 09/03/24 08:43 98.4 72 16 98 98.4 09/03/24 08:00 Room Air* 0 21 Total Intake and Output 09/02/24 09/02/24 09/03/24 15:00 23:00 07:00 Intake Total 460 ml 450 ml Balance 460 ml 450 ml medications Current Medications Medications Dose Ordered Sig/Nitin Route Start Time Stop Time Status Last Admin Dose Admin Sodium Chloride 10 ml Q8HR IV 08/29/24 14:00 09/03/24 11:23 10 ML Acetaminophen/ Hydrocodone Bitart 1 tab Q4HP PRN PO 08/29/24 11:15 09/03/24 11:22 1 TAB Ondansetron HCl 4 mg Q4HP PRN IV 08/29/24 11:15 Docusate Sodium 100 mg BIDPRN PRN PO 08/29/24 11:15 Acetaminophen 650 mg Q6HP PRN PO 08/29/24 11:15 Nitroglycerin 0.4 mg Q5MINP PRN SL 08/29/24 11:15 Morphine Sulfate 2 mg Q30M PRN IV 08/29/24 11:15 Clopidogrel Bisulfate 75 mg DAILY PO 08/30/24 10:00 09/03/24 09:22 75 MG Amlodipine Besylate 10 mg DAILY PO 08/30/24 10:00 09/03/24 09:23 10 MG Hydralazine HCl 10 mg Q6HP PRN IV 08/29/24 11:15 08/30/24 16:30 10 MG Diagnostic Test (Pha) 1 strip ACHS 08/29/24 11:30 09/03/24 11:19 1 STRIP Insulin Human Regular HS SC 08/29/24 22:00 Insulin Human Regular AC SC 08/29/24 11:30 Dextrose 50 ml UD PRN IV 08/29/24 11:30 Sevelamer HCl 2,400 mg TIDWM PO 08/29/24 18:00 09/03/24 11:17 2,400 MG Ergocalciferol 50,000 unit Q7D PO 09/01/24 14:45 09/01/24 17:14 50,000 UNIT Guaifenesin/ Dextromethorphan 10 ml Q6HPRN PRN PO 09/03/24 02:15 09/03/24 02:26 10 ML Examination: LUNGS:Normal, CVS:Normal, MSK:Normal laboratory and microbiology Laboratory Tests 08/30/24 05:17 Test 08/30/24 05:17 Range/Units Serum Glucose 87 74-106 mg/dL Microbiology Date/Time Source Procedure Growth Status 08/29/24 17:08 Blood Blood Culture - Preliminary NO GROWTH AFTER 72 HOURS OF INCUBATION. Resulted Problem List/Assessment/Plan Problem List/Assessment/Plan End-stage renal disease requiring hemodialysis 3 times a week Diabetes mellitus type 2 Hypertension History of CVA Anemia of chronic Kidney disease Hyperphosphatemia Vitamin-D deficiency Recommendations Hemodialysis tomorrow Epogen 20628 IV post hemodialysis Resume home medication Renal diet Renvela 2400 mg p.o. t.i.d. with meals Ergocalciferol 08555 p.o. q.week Awaiting outpatient hemodialysis chair time pending insurance approval hep B surface antigen is negative We will continue to follow Plan discussed with: Patient JULIETTE COLVIN MD Sep 03, 2024 12:10
[2024-09-03 13:52] LABS: Basophils # (auto) 0.1 10 ^3/uL (0-0.2); Basophils % (auto) 1.1 % (0.0-2.0); Eosinophils # (auto) 0.1 10 ^3/uL (0-0.8); Eosinophils % (auto) 2.3 % (0.0-7.0); Hematocrit 31.3 % (36.0-46.0); Hemoglobin 10.2 g/dL (12.2-16.2); Lymphocytes # (auto) 1.1 10 ^3/uL (0.4-5.4); Lymphocytes % (auto) 23.3 % (10.0-50.0); Mean Corpuscular Hemoglobin 30.4 pg (28.0-32.0); Mean Corpuscular Hgb Conc. 32.5 g/dL (32.0-36.0); Mean Corpuscular Volume 93.7 fL (80.0-100.0); Monocytes # (auto) 0.6 10 ^3/uL (0-1.3); Monocytes % (auto) 12.5 % (0.0-12.0); Neutrophils % (auto) 60.8 % (37.0-80.0); Nucleated Red Blood Cells % 0.2 %; Platelet Count (auto) 197 10^3/uL (140-450); Red Blood Cells 3.34 10^6/uL (4.0-5.20); Red Cell Distribution Width 15.2 % (11.8-14.3); White Blood Cell 4.9 10^3/uL (4.4-10.8)
[2024-09-04] VITALS (8 sets, daily range): BP systolic 108–139; BP diastolic 53–79; PULSE 60–75; RESP 16–18; TEMP 98.1–99; O2SAT 93–100
[2024-09-04] MEDS ORDERED: SODIUM CHL 0.9% 1000 ML BAG XX ONE (07:00)
--- NOTE | 2024-09-04 08:32 | DVHPN2 ---
Reviewed: Care Plan, H&P, Labs, Medications, Previous Orders, Radiology Changes from previous H/P or p: No Changes Eyes: No Pain, No Vision change, No Conjunctivae inflammation, No Eyelid inflammation, No Other, No Redness ENT: No Ear pain, No Ear discharge, No Nose pain, No Nose discharge, No Nose congestion, No Mouth pain, No Mouth swelling, No Throat pain, No Throat swelling, No Other Cardiovascular: No Chest Pain, No Palpitations, No Orthopnea, No Paroxysmal Noc. Dyspnea, No Edema, No Lt Headedness, No Other Respiratory: No Cough, No Dry, No Shortness of breath, No SOB with excertion, No Wheezing, No Hemoptysis, No Pleuritic Pain, No Sputum, No Other Gastrointestinal: No Nausea, No Vomiting, No Abdominal Pain, No Diarrhea, No Constipation, No Melena, No Hematochezia, No Other Genitourinary: No Dysuria, No Frequency, No Incontinence, No Hematuria, No Retention, No Other Musculoskeletal: No other, No neck pain, No shoulder pain, No arm pain, No back pain, No hand pain, No leg pain, No foot pain Skin: No Rash, No Lesions, No Jaundice, No Bruising, No Other Objective Vitals Vital Signs Date Time Temp Pulse Resp B/P (MAP) Pulse Ox O2 Delivery O2 Flow Rate FiO2 09/04/24 05:00 98.4 66 18 108/54 (72) 93 98.4 09/03/24 20:00 Room Air* 0 21 Intake/Output Intake and Output 09/04/24 07:00 Intake Total 1000 ml Output Total 600 ml Balance 400 ml Intake Oral 1000 ml Output Urine Total 600 ml # Voids 2 Medications Current Medications Medications Dose Ordered Sig/Nitin Route Start Time Stop Time Status Last Admin Dose Admin Sodium Chloride 10 ml Q8HR IV 08/29/24 14:00 09/04/24 06:25 10 ML Acetaminophen/ Hydrocodone Bitart 1 tab Q4HP PRN PO 08/29/24 11:15 09/03/24 11:22 1 TAB Ondansetron HCl 4 mg Q4HP PRN IV 08/29/24 11:15 Docusate Sodium 100 mg BIDPRN PRN PO 08/29/24 11:15 Acetaminophen 650 mg Q6HP PRN PO 08/29/24 11:15 Nitroglycerin 0.4 mg Q5MINP PRN SL 08/29/24 11:15 Morphine Sulfate 2 mg Q30M PRN IV 08/29/24 11:15 Clopidogrel Bisulfate 75 mg DAILY PO 08/30/24 10:00 09/03/24 09:22 75 MG Amlodipine Besylate 10 mg DAILY PO 08/30/24 10:00 09/03/24 09:23 10 MG Hydralazine HCl 10 mg Q6HP PRN IV 08/29/24 11:15 08/30/24 16:30 10 MG Diagnostic Test (Pha) 1 strip ACHS 08/29/24 11:30 09/04/24 06:26 1 STRIP Insulin Human Regular HS SC 08/29/24 22:00 Insulin Human Regular AC SC 08/29/24 11:30 Dextrose 50 ml UD PRN IV 08/29/24 11:30 Sevelamer HCl 2,400 mg TIDWM PO 08/29/24 18:00 09/03/24 17:28 2,400 MG Ergocalciferol 50,000 unit Q7D PO 09/01/24 14:45 09/01/24 17:14 50,000 UNIT Guaifenesin/ Dextromethorphan 10 ml Q6HPRN PRN PO 09/03/24 02:15 09/03/24 21:37 10 ML Laboratory Results Laboratory Tests 08/30/24 05:17 09/03/24 13:33 Microbiology Microbiology Date/Time Source Procedure Growth Status 08/29/24 17:08 Blood Blood Culture - Final NO GROWTH AFTER 5 DAYS OF INCUBATION. Complete Labs and/or images reviewed: Labs reviewed by me, Image(s) reviewed by me Assessment/Plan Assessment/Plan End-stage renal disease requiring hemodialysis 3 times a week: Consult by Dr. Asif appreciated Diabetes mellitus type 2 Hypertension History of CVA Anemia of chronic Kidney disease Hypophosphatemia Vitamin-D deficiency Noncompliance patient missed hemodialysis while visiting [place] Patient is full code Time spent 45 minutes Hepatitis panel negative for hep B and hep C Awaiting chart time from [facility] new complaints Plan discussed with: Patient Date of Service: Sep 04, 2024 Billing Provider: FELICIA NAM MD Common Visit Codes: [id number] INP/OBS CARE(HIGH) FELICIA NAM MD Sep 04, 2024 08:32
--- NOTE | 2024-09-04 11:21 | DVHPN2 ---
Progress Note Date Seen: Sep 04, 2024 Medical Necessity Reason Pt with a Central, PICC or Fol: No Objective vital signs Vital Sign Date Time Temp Pulse Resp B/P (MAP) Pulse Ox O2 Delivery O2 Flow Rate FiO2 09/04/24 10:49 139/69 09/04/24 09:26 98.2 60 18 97 98.2 09/04/24 08:00 Room Air* 0 21 Total Intake and Output 09/03/24 09/03/24 09/04/24 15:00 23:00 07:00 Intake Total 750 ml 250 ml Output Total 600 ml Balance 750 ml -350 ml medications Current Medications Medications Dose Ordered Sig/Nitin Route Start Time Stop Time Status Last Admin Dose Admin Sodium Chloride 10 ml Q8HR IV 08/29/24 14:00 09/04/24 06:25 10 ML Acetaminophen/ Hydrocodone Bitart 1 tab Q4HP PRN PO 08/29/24 11:15 09/03/24 11:22 1 TAB Ondansetron HCl 4 mg Q4HP PRN IV 08/29/24 11:15 Docusate Sodium 100 mg BIDPRN PRN PO 08/29/24 11:15 Acetaminophen 650 mg Q6HP PRN PO 08/29/24 11:15 Nitroglycerin 0.4 mg Q5MINP PRN SL 08/29/24 11:15 Morphine Sulfate 2 mg Q30M PRN IV 08/29/24 11:15 Clopidogrel Bisulfate 75 mg DAILY PO 08/30/24 10:00 09/04/24 10:50 75 MG Amlodipine Besylate 10 mg DAILY PO 08/30/24 10:00 09/04/24 10:49 10 MG Hydralazine HCl 10 mg Q6HP PRN IV 08/29/24 11:15 08/30/24 16:30 10 MG Diagnostic Test (Pha) 1 strip ACHS 08/29/24 11:30 09/04/24 06:26 1 STRIP Insulin Human Regular HS SC 08/29/24 22:00 Insulin Human Regular AC SC 08/29/24 11:30 Dextrose 50 ml UD PRN IV 08/29/24 11:30 Sevelamer HCl 2,400 mg TIDWM PO 08/29/24 18:00 09/03/24 17:28 2,400 MG Ergocalciferol 50,000 unit Q7D PO 09/01/24 14:45 09/01/24 17:14 50,000 UNIT Guaifenesin/ Dextromethorphan 10 ml Q6HPRN PRN PO 09/03/24 02:15 09/03/24 21:37 10 ML Examination: GENERAL:Normal, CVS:Normal, ABDOMEN:Normal laboratory and microbiology Laboratory Tests 09/03/24 13:33 08/30/24 05:17 Test 08/30/24 05:17 Range/Units Serum Glucose 87 74-106 mg/dL Microbiology Date/Time Source Procedure Growth Status 08/29/24 17:08 Blood Blood Culture - Final NO GROWTH AFTER 5 DAYS OF INCUBATION. Complete Problem List/Assessment/Plan Problem List/Assessment/Plan End-stage renal disease requiring hemodialysis 3 times a week Diabetes mellitus type 2 Hypertension History of CVA Anemia of chronic Kidney disease Hyperphosphatemia Vitamin-D deficiency Hemodialysis today Epogen 43094 IV post hemodialysis Resume home medication Renal diet Renvela 2400 mg p.o. t.i.d. with meals Ergocalciferol 43413 p.o. q.week hep B surface antigen is negative Pending HD chairtime DCD Plan discussed with: Patient ARSH JACKSON MD Sep 04, 2024 11:21
[2024-09-04] MEDS: EPOETIN ALFA-EPBX 10,000 UNIT/1ML VIAL SC ONE (21:06)
[2024-09-05] VITALS (8 sets, daily range): BP systolic 132–168; BP diastolic 59–94; PULSE 61–76; RESP 15–20; TEMP 97.7–98.7; O2SAT 94–98
--- NOTE | 2024-09-05 10:05 | DVHPN2 ---
Reviewed: Care Plan, H&P, Labs, Medications, Previous Orders, Radiology Changes from previous H/P or p: No Changes Eyes: No Pain, No Vision change, No Conjunctivae inflammation, No Eyelid inflammation, No Other, No Redness ENT: No Ear pain, No Ear discharge, No Nose pain, No Nose discharge, No Nose congestion, No Mouth pain, No Mouth swelling, No Throat pain, No Throat swelling, No Other Cardiovascular: No Chest Pain, No Palpitations, No Orthopnea, No Paroxysmal Noc. Dyspnea, No Edema, No Lt Headedness, No Other Respiratory: No Cough, No Dry, No Shortness of breath, No SOB with excertion, No Wheezing, No Hemoptysis, No Pleuritic Pain, No Sputum, No Other Gastrointestinal: No Nausea, No Vomiting, No Abdominal Pain, No Diarrhea, No Constipation, No Melena, No Hematochezia, No Other Genitourinary: No Dysuria, No Frequency, No Incontinence, No Hematuria, No Retention, No Other Musculoskeletal: No other, No neck pain, No shoulder pain, No arm pain, No back pain, No hand pain, No leg pain, No foot pain Skin: No Rash, No Lesions, No Jaundice, No Bruising, No Other Objective Vitals Vital Signs Date Time Temp Pulse Resp B/P (MAP) Pulse Ox O2 Delivery O2 Flow Rate FiO2 09/05/24 09:00 98.0 71 15 151/68 (95) 95 98.0 09/04/24 20:00 Room Air* 0 21 Intake/Output Intake and Output 09/05/24 07:00 Intake Total 1000 ml Balance 1000 ml Intake Oral 1000 ml # Bowel Movements 2 Medications Current Medications Medications Dose Ordered Sig/Nitin Route Start Time Stop Time Status Last Admin Dose Admin Sodium Chloride 10 ml Q8HR IV 08/29/24 14:00 09/05/24 06:55 10 ML Acetaminophen/ Hydrocodone Bitart 1 tab Q4HP PRN PO 08/29/24 11:15 09/03/24 11:22 1 TAB Ondansetron HCl 4 mg Q4HP PRN IV 08/29/24 11:15 Docusate Sodium 100 mg BIDPRN PRN PO 08/29/24 11:15 Acetaminophen 650 mg Q6HP PRN PO 08/29/24 11:15 Nitroglycerin 0.4 mg Q5MINP PRN SL 08/29/24 11:15 Morphine Sulfate 2 mg Q30M PRN IV 08/29/24 11:15 Clopidogrel Bisulfate 75 mg DAILY PO 08/30/24 10:00 09/05/24 08:55 75 MG Amlodipine Besylate 10 mg DAILY PO 08/30/24 10:00 09/05/24 08:55 10 MG Hydralazine HCl 10 mg Q6HP PRN IV 08/29/24 11:15 08/30/24 16:30 10 MG Diagnostic Test (Pha) 1 strip ACHS 08/29/24 11:30 09/05/24 06:55 1 STRIP Insulin Human Regular HS SC 08/29/24 22:00 Insulin Human Regular AC SC 08/29/24 11:30 09/04/24 11:45 2 UNITS Dextrose 50 ml UD PRN IV 08/29/24 11:30 Sevelamer HCl 2,400 mg TIDWM PO 08/29/24 18:00 09/05/24 08:55 2,400 MG Ergocalciferol 50,000 unit Q7D PO 09/01/24 14:45 09/01/24 17:14 50,000 UNIT Guaifenesin/ Dextromethorphan 10 ml Q6HPRN PRN PO 09/03/24 02:15 09/03/24 21:37 10 ML Laboratory Results Laboratory Tests 08/30/24 05:17 09/03/24 13:33 Microbiology Microbiology Date/Time Source Procedure Growth Status 08/29/24 17:08 Blood Blood Culture - Final NO GROWTH AFTER 5 DAYS OF INCUBATION. Complete Labs and/or images reviewed: Labs reviewed by me, Image(s) reviewed by me Assessment/Plan Assessment/Plan End-stage renal disease requiring hemodialysis 3 times a week: Consult by Dr. Asif appreciated Diabetes mellitus type 2 Hypertension History of CVA Anemia of chronic Kidney disease Hypophosphatemia Vitamin-D deficiency Noncompliance patient missed hemodialysis while visiting [place] Patient is full code Time spent 45 minutes Hepatitis panel negative for hep B and hep C Awaiting chart time from [facility] new complaints Plan discussed with: Patient Date of Service: Sep 05, 2024 Billing Provider: FELICIA NAM MD Common Visit Codes: [id number] INP/OBS CARE(HIGH) FELICIA NAM MD Sep 05, 2024 10:05
--- NOTE | 2024-09-05 11:10 | DVHPN2 ---
Progress Note Date Seen: Sep 05, 2024 Medical Necessity Reason Pt with a Central, PICC or Fol: No Subjective Patient reports: Feels better Objective vital signs Vital Sign Date Time Temp Pulse Resp B/P (MAP) Pulse Ox O2 Delivery O2 Flow Rate FiO2 09/05/24 09:00 98.0 71 15 151/68 (95) 95 98.0 09/04/24 20:00 Room Air* 0 21 Total Intake and Output 09/04/24 09/04/24 09/05/24 15:00 23:00 07:00 Intake Total 500 ml 500 ml Balance 500 ml 500 ml medications Current Medications Medications Dose Ordered Sig/Nitin Route Start Time Stop Time Status Last Admin Dose Admin Sodium Chloride 10 ml Q8HR IV 08/29/24 14:00 09/05/24 06:55 10 ML Acetaminophen/ Hydrocodone Bitart 1 tab Q4HP PRN PO 08/29/24 11:15 09/03/24 11:22 1 TAB Ondansetron HCl 4 mg Q4HP PRN IV 08/29/24 11:15 Docusate Sodium 100 mg BIDPRN PRN PO 08/29/24 11:15 Acetaminophen 650 mg Q6HP PRN PO 08/29/24 11:15 Nitroglycerin 0.4 mg Q5MINP PRN SL 08/29/24 11:15 Morphine Sulfate 2 mg Q30M PRN IV 08/29/24 11:15 Clopidogrel Bisulfate 75 mg DAILY PO 08/30/24 10:00 09/05/24 08:55 75 MG Amlodipine Besylate 10 mg DAILY PO 08/30/24 10:00 09/05/24 08:55 10 MG Hydralazine HCl 10 mg Q6HP PRN IV 08/29/24 11:15 08/30/24 16:30 10 MG Diagnostic Test (Pha) 1 strip ACHS 08/29/24 11:30 09/05/24 06:55 1 STRIP Insulin Human Regular HS SC 08/29/24 22:00 Insulin Human Regular AC SC 08/29/24 11:30 09/04/24 11:45 2 UNITS Dextrose 50 ml UD PRN IV 08/29/24 11:30 Sevelamer HCl 2,400 mg TIDWM PO 08/29/24 18:00 09/05/24 08:55 2,400 MG Ergocalciferol 50,000 unit Q7D PO 09/01/24 14:45 09/01/24 17:14 50,000 UNIT Guaifenesin/ Dextromethorphan 10 ml Q6HPRN PRN PO 09/03/24 02:15 09/03/24 21:37 10 ML Examination: GENERAL:Normal, HEENT:Normal, NECK:Normal, CVS:Normal, ABDOMEN:Normal laboratory and microbiology Laboratory Tests 09/03/24 13:33 08/30/24 05:17 Test 08/30/24 05:17 Range/Units Serum Glucose 87 74-106 mg/dL Microbiology Date/Time Source Procedure Growth Status 08/29/24 17:08 Blood Blood Culture - Final NO GROWTH AFTER 5 DAYS OF INCUBATION. Complete Problem List/Assessment/Plan Problem List/Assessment/Plan End-stage renal disease requiring hemodialysis 3 times a week Diabetes mellitus type 2 Hypertension History of CVA Anemia of chronic Kidney disease Hyperphosphatemia Vitamin-D deficiency Hemodialysis tentatively tomorrow is remains admitted Epogen 69735 IV post hemodialysis Resume home medication Renal diet Renvela 2400 mg p.o. t.i.d. with meals Ergocalciferol 34144 p.o. q.week hep B surface antigen is negative Pending HD chairtime DCD Plan discussed with: Patient ARSH JACKSON MD Sep 05, 2024 11:10
[2024-09-06] VITALS (7 sets, daily range): BP systolic 134–167; BP diastolic 64–74; PULSE 58–77; RESP 13–20; TEMP 97.6–98.9; O2SAT 94–100
--- NOTE | 2024-09-06 08:22 | DVHPN2 ---
Reviewed: Care Plan, H&P, Labs, Medications, Previous Orders, Radiology Changes from previous H/P or p: No Changes Eyes: No Pain, No Vision change, No Conjunctivae inflammation, No Eyelid inflammation, No Other, No Redness ENT: No Ear pain, No Ear discharge, No Nose pain, No Nose discharge, No Nose congestion, No Mouth pain, No Mouth swelling, No Throat pain, No Throat swelling, No Other Cardiovascular: No Chest Pain, No Palpitations, No Orthopnea, No Paroxysmal Noc. Dyspnea, No Edema, No Lt Headedness, No Other Respiratory: No Cough, No Dry, No Shortness of breath, No SOB with excertion, No Wheezing, No Hemoptysis, No Pleuritic Pain, No Sputum, No Other Gastrointestinal: No Nausea, No Vomiting, No Abdominal Pain, No Diarrhea, No Constipation, No Melena, No Hematochezia, No Other Genitourinary: No Dysuria, No Frequency, No Incontinence, No Hematuria, No Retention, No Other Musculoskeletal: No other, No neck pain, No shoulder pain, No arm pain, No back pain, No hand pain, No leg pain, No foot pain Skin: No Rash, No Lesions, No Jaundice, No Bruising, No Other Objective Vitals Vital Signs Date Time Temp Pulse Resp B/P (MAP) Pulse Ox O2 Delivery O2 Flow Rate FiO2 09/06/24 04:57 98.6 66 20 163/66 (98) 100 98.6 09/05/24 20:00 Room Air* 0 21 Intake/Output Intake and Output 09/06/24 07:00 Intake Total 858 ml Balance 858 ml Intake Oral 858 ml # Voids 4 Medications Current Medications Medications Dose Ordered Sig/Nitin Route Start Time Stop Time Status Last Admin Dose Admin Sodium Chloride 10 ml Q8HR IV 08/29/24 14:00 09/06/24 08:04 10 ML Acetaminophen/ Hydrocodone Bitart 1 tab Q4HP PRN PO 08/29/24 11:15 09/03/24 11:22 1 TAB Ondansetron HCl 4 mg Q4HP PRN IV 08/29/24 11:15 Docusate Sodium 100 mg BIDPRN PRN PO 08/29/24 11:15 Acetaminophen 650 mg Q6HP PRN PO 08/29/24 11:15 Nitroglycerin 0.4 mg Q5MINP PRN SL 08/29/24 11:15 Morphine Sulfate 2 mg Q30M PRN IV 08/29/24 11:15 Clopidogrel Bisulfate 75 mg DAILY PO 08/30/24 10:00 09/05/24 08:55 75 MG Amlodipine Besylate 10 mg DAILY PO 08/30/24 10:00 09/05/24 08:55 10 MG Hydralazine HCl 10 mg Q6HP PRN IV 08/29/24 11:15 08/30/24 16:30 10 MG Diagnostic Test (Pha) 1 strip ACHS 08/29/24 11:30 09/06/24 08:04 1 STRIP Insulin Human Regular HS SC 08/29/24 22:00 Insulin Human Regular AC SC 08/29/24 11:30 09/04/24 11:45 2 UNITS Dextrose 50 ml UD PRN IV 08/29/24 11:30 Sevelamer HCl 2,400 mg TIDWM PO 08/29/24 18:00 09/05/24 17:31 2,400 MG Ergocalciferol 50,000 unit Q7D PO 09/01/24 14:45 09/01/24 17:14 50,000 UNIT Guaifenesin/ Dextromethorphan 10 ml Q6HPRN PRN PO 09/03/24 02:15 09/03/24 21:37 10 ML Laboratory Results Laboratory Tests 08/30/24 05:17 09/03/24 13:33 Microbiology Microbiology Date/Time Source Procedure Growth Status 08/29/24 17:08 Blood Blood Culture - Final NO GROWTH AFTER 5 DAYS OF INCUBATION. Complete Labs and/or images reviewed: Labs reviewed by me, Image(s) reviewed by me Assessment/Plan Assessment/Plan End-stage renal disease requiring hemodialysis 3 times a week: Consult by Dr. Asif appreciated Diabetes mellitus type 2 Hypertension History of CVA Anemia of chronic Kidney disease Hypophosphatemia Vitamin-D deficiency Noncompliance patient missed hemodialysis while visiting [place] Patient is full code Time spent 45 minutes Hepatitis panel negative for hep B and hep C Per telehealth case manager Winnie Madrigal, patient has chair [facility] at [facility] starting on 09/19/2024 Advised the patient about the chair time in presence of USAMA Barbour. Plan discussed with: Patient Date of Service: Sep 06, 2024 Billing Provider: FELICIA NAM MD Common Visit Codes: [id number] INP/OBS CARE(HIGH) FELICIA NAM MD Sep 06, 2024 08:22
[2024-09-06 10:39] LABS: Chloride 100 mmol/L (98-107); Potassium 3.9 mmol/L (3.5-5.1)
[2024-09-06 10:40] LABS: Anion Gap 11 (5-15); Calcium 10.1 mg/dL (8.7-10.4); Carbon Dioxide 24 mmol/L (20-31)
[2024-09-06 10:46] LABS: BUN/Creatinine Ratio 4.2 (10.0-20.0)
[2024-09-06 11:17] LABS: Blood Urea Nitrogen 24 mg/dL (9-23); Glucose 107 mg/dL (74-106); Sodium 135 mmol/L (136-145)
--- NOTE | 2024-09-06 11:19 | DVHPN2 ---
Progress Note Date Seen: Sep 06, 2024 Medical Necessity Reason Pt with a Central, PICC or Fol: No Subjective Patient reports: No new complaints Other Systems: Patient seen and examined by myself today in follow-up Patient examined hemodialysis, blood pressure stable Objective vital signs Vital Sign Date Time Temp Pulse Resp B/P (MAP) Pulse Ox O2 Delivery O2 Flow Rate FiO2 09/06/24 10:31 150/72 09/06/24 08:00 67 09/06/24 08:00 18 94 Room Air* 0 21 09/06/24 04:57 98.6 98.6 Total Intake and Output 09/05/24 09/05/24 09/06/24 15:00 23:00 07:00 Intake Total 234 ml 624 ml Balance 234 ml 624 ml medications Current Medications Medications Dose Ordered Sig/Nitin Route Start Time Stop Time Status Last Admin Dose Admin Sodium Chloride 10 ml Q8HR IV 08/29/24 14:00 09/06/24 08:04 10 ML Acetaminophen/ Hydrocodone Bitart 1 tab Q4HP PRN PO 08/29/24 11:15 09/03/24 11:22 1 TAB Ondansetron HCl 4 mg Q4HP PRN IV 08/29/24 11:15 Docusate Sodium 100 mg BIDPRN PRN PO 08/29/24 11:15 Acetaminophen 650 mg Q6HP PRN PO 08/29/24 11:15 Nitroglycerin 0.4 mg Q5MINP PRN SL 08/29/24 11:15 Morphine Sulfate 2 mg Q30M PRN IV 08/29/24 11:15 Clopidogrel Bisulfate 75 mg DAILY PO 08/30/24 10:00 09/06/24 10:31 75 MG Amlodipine Besylate 10 mg DAILY PO 08/30/24 10:00 09/06/24 10:31 10 MG Hydralazine HCl 10 mg Q6HP PRN IV 08/29/24 11:15 08/30/24 16:30 10 MG Diagnostic Test (Pha) 1 strip ACHS 08/29/24 11:30 09/06/24 08:04 1 STRIP Insulin Human Regular HS SC 08/29/24 22:00 Insulin Human Regular AC SC 08/29/24 11:30 09/04/24 11:45 2 UNITS Dextrose 50 ml UD PRN IV 08/29/24 11:30 Sevelamer HCl 2,400 mg TIDWM PO 08/29/24 18:00 09/06/24 10:30 2,400 MG Ergocalciferol 50,000 unit Q7D PO 09/01/24 14:45 09/01/24 17:14 50,000 UNIT Guaifenesin/ Dextromethorphan 10 ml Q6HPRN PRN PO 09/03/24 02:15 09/03/24 21:37 10 ML Examination: LUNGS:Normal, CVS:Normal, MSK:Normal laboratory and microbiology Laboratory Tests 09/06/24 09:54 09/03/24 13:33 Test 09/06/24 09:54 Range/Units Serum Glucose 107 H 74-106 mg/dL Microbiology Date/Time Source Procedure Growth Status 08/29/24 17:08 Blood Blood Culture - Final NO GROWTH AFTER 5 DAYS OF INCUBATION. Complete Problem List/Assessment/Plan Problem List/Assessment/Plan End-stage renal disease requiring hemodialysis 3 times a week Diabetes mellitus type 2 Hypertension History of CVA Anemia of chronic Kidney disease Hyperphosphatemia Vitamin-D deficiency Recommendations Continue with UF to 3 L as tolerated Epogen 00403 IV post hemodialysis Resume home medication Renal diet Renvela 2400 mg p.o. t.i.d. with meals Ergocalciferol 55594 p.o. q.week Awaiting outpatient hemodialysis chair time pending insurance approval hep B surface antigen is negative We will continue to follow Plan discussed with: Patient My Orders My Orders Orders - JULIETTE COLVIN MD Procedure Category Date Status Time Complete Blood Count LAB 09/06/24 Logged 08:00 JULIETTE COLVIN MD Sep 06, 2024 11:19
[2024-09-06 15:13] LABS: Basophils # (auto) 0 10 ^3/uL (0-0.2); Basophils % (auto) 0.7 % (0.0-2.0); Eosinophils # (auto) 0.1 10 ^3/uL (0-0.8); Hematocrit 36.2 % (36.0-46.0); Hemoglobin 11.4 g/dL (12.2-16.2); Lymphocytes # (auto) 1.5 10 ^3/uL (0.4-5.4); Lymphocytes % (auto) 25.9 % (10.0-50.0); Mean Corpuscular Hgb Conc. 31.6 g/dL (32.0-36.0); Mean Corpuscular Volume 94.7 fL (80.0-100.0); Monocytes # (auto) 0.3 10 ^3/uL (0-1.3); Monocytes % (auto) 4.9 % (0.0-12.0); Neutrophils # (auto) 3.8 10 ^3/uL (1.6-8.6); Neutrophils % (auto) 67.5 % (37.0-80.0); Nucleated Red Blood Cells % 0.1 %; Platelet Count (auto) 166 10^3/uL (140-450); Red Blood Cells 3.82 10^6/uL (4.0-5.20); White Blood Cell 5.7 10^3/uL (4.4-10.8)
[2024-09-07] VITALS (9 sets, daily range): BP systolic 137–143; BP diastolic 62–70; PULSE 56–73; RESP 15–17; TEMP 97.8–98.1; O2SAT 95–99
--- NOTE | 2024-09-07 08:50 | DVHPN2 ---
Reviewed: Care Plan, H&P, Labs, Medications, Previous Orders, Radiology Changes from previous H/P or p: No Changes Eyes: No Pain, No Vision change, No Conjunctivae inflammation, No Eyelid inflammation, No Other, No Redness ENT: No Ear pain, No Ear discharge, No Nose pain, No Nose discharge, No Nose congestion, No Mouth pain, No Mouth swelling, No Throat pain, No Throat swelling, No Other Cardiovascular: No Chest Pain, No Palpitations, No Orthopnea, No Paroxysmal Noc. Dyspnea, No Edema, No Lt Headedness, No Other Respiratory: No Cough, No Dry, No Shortness of breath, No SOB with excertion, No Wheezing, No Hemoptysis, No Pleuritic Pain, No Sputum, No Other Gastrointestinal: No Nausea, No Vomiting, No Abdominal Pain, No Diarrhea, No Constipation, No Melena, No Hematochezia, No Other Genitourinary: No Dysuria, No Frequency, No Incontinence, No Hematuria, No Retention, No Other Musculoskeletal: No other, No neck pain, No shoulder pain, No arm pain, No back pain, No hand pain, No leg pain, No foot pain Skin: No Rash, No Lesions, No Jaundice, No Bruising, No Other Objective Vitals Vital Signs Date Time Temp Pulse Resp B/P (MAP) Pulse Ox O2 Delivery O2 Flow Rate FiO2 09/07/24 05:00 98.0 56 17 140/62 (88) 98 98.0 09/06/24 20:00 Room Air* 0 21 Intake/Output Intake and Output 09/07/24 07:00 Intake Total 2270 ml Balance 2270 ml Intake Oral 2270 ml # Voids 5 Medications Current Medications Medications Dose Ordered Sig/Nitin Route Start Time Stop Time Status Last Admin Dose Admin Sodium Chloride 10 ml Q8HR IV 08/29/24 14:00 09/07/24 06:07 10 ML Acetaminophen/ Hydrocodone Bitart 1 tab Q4HP PRN PO 08/29/24 11:15 09/03/24 11:22 1 TAB Ondansetron HCl 4 mg Q4HP PRN IV 08/29/24 11:15 Docusate Sodium 100 mg BIDPRN PRN PO 08/29/24 11:15 Acetaminophen 650 mg Q6HP PRN PO 08/29/24 11:15 Nitroglycerin 0.4 mg Q5MINP PRN SL 08/29/24 11:15 Morphine Sulfate 2 mg Q30M PRN IV 08/29/24 11:15 Clopidogrel Bisulfate 75 mg DAILY PO 08/30/24 10:00 09/06/24 10:31 75 MG Amlodipine Besylate 10 mg DAILY PO 08/30/24 10:00 09/06/24 10:31 10 MG Hydralazine HCl 10 mg Q6HP PRN IV 08/29/24 11:15 08/30/24 16:30 10 MG Diagnostic Test (Pha) 1 strip ACHS 08/29/24 11:30 09/07/24 06:07 1 STRIP Insulin Human Regular HS SC 08/29/24 22:00 Insulin Human Regular AC SC 08/29/24 11:30 09/06/24 12:55 2 UNITS Dextrose 50 ml UD PRN IV 08/29/24 11:30 Sevelamer HCl 2,400 mg TIDWM PO 08/29/24 18:00 09/06/24 18:27 2,400 MG Ergocalciferol 50,000 unit Q7D PO 09/01/24 14:45 09/01/24 17:14 50,000 UNIT Guaifenesin/ Dextromethorphan 10 ml Q6HPRN PRN PO 09/03/24 02:15 09/03/24 21:37 10 ML Laboratory Results Laboratory Tests 09/06/24 09:54 09/06/24 13:56 Chemistry Test 09/06/24 09:54 Calcium Level 10.1 mg/dL (8.7-10.4) Microbiology Microbiology Date/Time Source Procedure Growth Status 08/29/24 17:08 Blood Blood Culture - Final NO GROWTH AFTER 5 DAYS OF INCUBATION. Complete Labs and/or images reviewed: Labs reviewed by me, Image(s) reviewed by me Assessment/Plan Assessment/Plan End-stage renal disease requiring hemodialysis 3 times a week: Consult by Dr. Asif appreciated Diabetes mellitus type 2 Hypertension History of CVA Anemia of chronic Kidney disease Hypophosphatemia Vitamin-D deficiency Noncompliance patient missed hemodialysis while visiting [place] Patient is full code Time spent 45 minutes Hepatitis panel negative for hep B and hep C Per rn case manager hospice Winnie Madrigal, patient has chair time at [facility] starting on 09/19/2024 Advised the patient about the chair time in presence of RN No new changes Plan discussed with: Patient Date of Service: Sep 07, 2024 Billing Provider: FELICIA NAM MD Common Visit Codes: [id number] INP/OBS CARE(HIGH) FELICIA NAM MD Sep 07, 2024 08:50
--- NOTE | 2024-09-07 13:25 | DVHPN2 ---
Progress Note Date Seen: Sep 07, 2024 Medical Necessity Reason Pt with a Central, PICC or Fol: No Subjective Patient reports: No new complaints Other Systems: Patient seen and examined by myself today in follow-up Objective vital signs Vital Sign Date Time Temp Pulse Resp B/P (MAP) Pulse Ox O2 Delivery O2 Flow Rate FiO2 09/07/24 12:40 98.1 71 15 142/70 (94) 99 98.1 09/06/24 20:00 Room Air* 0 21 Total Intake and Output 09/06/24 09/06/24 09/07/24 15:00 23:00 07:00 Intake Total 660 ml 660 ml 950 ml Balance 660 ml 660 ml 950 ml medications Current Medications Medications Dose Ordered Sig/Nitin Route Start Time Stop Time Status Last Admin Dose Admin Sodium Chloride 10 ml Q8HR IV 08/29/24 14:00 09/07/24 06:07 10 ML Acetaminophen/ Hydrocodone Bitart 1 tab Q4HP PRN PO 08/29/24 11:15 09/03/24 11:22 1 TAB Ondansetron HCl 4 mg Q4HP PRN IV 08/29/24 11:15 Docusate Sodium 100 mg BIDPRN PRN PO 08/29/24 11:15 Acetaminophen 650 mg Q6HP PRN PO 08/29/24 11:15 Nitroglycerin 0.4 mg Q5MINP PRN SL 08/29/24 11:15 Morphine Sulfate 2 mg Q30M PRN IV 08/29/24 11:15 Clopidogrel Bisulfate 75 mg DAILY PO 08/30/24 10:00 09/07/24 09:33 75 MG Amlodipine Besylate 10 mg DAILY PO 08/30/24 10:00 09/07/24 09:33 10 MG Hydralazine HCl 10 mg Q6HP PRN IV 08/29/24 11:15 08/30/24 16:30 10 MG Diagnostic Test (Pha) 1 strip ACHS 08/29/24 11:30 09/07/24 11:30 1 STRIP Insulin Human Regular HS SC 08/29/24 22:00 Insulin Human Regular AC SC 08/29/24 11:30 09/06/24 12:55 2 UNITS Dextrose 50 ml UD PRN IV 08/29/24 11:30 Sevelamer HCl 2,400 mg TIDWM PO 08/29/24 18:00 09/07/24 12:19 2,400 MG Ergocalciferol 50,000 unit Q7D PO 09/01/24 14:45 09/01/24 17:14 50,000 UNIT Guaifenesin/ Dextromethorphan 10 ml Q6HPRN PRN PO 09/03/24 02:15 09/03/24 21:37 10 ML Examination: LUNGS:Normal, CVS:Normal, MSK:Normal laboratory and microbiology Laboratory Tests 09/06/24 13:56 09/06/24 09:54 Test 09/06/24 09:54 Range/Units Serum Glucose 107 H 74-106 mg/dL Microbiology Date/Time Source Procedure Growth Status 08/29/24 17:08 Blood Blood Culture - Final NO GROWTH AFTER 5 DAYS OF INCUBATION. Complete Problem List/Assessment/Plan Problem List/Assessment/Plan End-stage renal disease requiring hemodialysis 3 times a week Diabetes mellitus type 2 Hypertension History of CVA Anemia of chronic Kidney disease Hyperphosphatemia Vitamin-D deficiency Recommendations Hemodialysis tomorrow Epogen 9[address] IV post hemodialysis Resume home medication Renal diet Renvela 2400 mg p.o. t.i.d. with meals Ergocalciferol 79207 p.o. q.week Awaiting outpatient hemodialysis chair time pending insurance approval hep B surface antigen is negative We will continue to follow Plan discussed with: Patient Dietary Evaluation Review Comments: "Renal Standard 2GNA 3K. Low Phos diet" is the standard dietary order for for HD ESRD patient Expected Outcomes/Goals: Monitor PO intaket to meet 75% of her needs JULIETTE COLVIN MD Sep 07, 2024 13:25
[2024-09-08 05:15] VITALS: BP 126/61; PULSE 64; RESP 15; TEMP 98.2; O2SAT 93
[2024-09-08 07:30] VITALS: PULSE 64; RESP 17
--- NOTE | 2024-09-08 07:43 | DVHPN2 ---
Reviewed: Care Plan, H&P, Labs, Medications, Previous Orders, Radiology Changes from previous H/P or p: No Changes Eyes: No Pain, No Vision change, No Conjunctivae inflammation, No Eyelid inflammation, No Other, No Redness ENT: No Ear pain, No Ear discharge, No Nose pain, No Nose discharge, No Nose congestion, No Mouth pain, No Mouth swelling, No Throat pain, No Throat swelling, No Other Cardiovascular: No Chest Pain, No Palpitations, No Orthopnea, No Paroxysmal Noc. Dyspnea, No Edema, No Lt Headedness, No Other Respiratory: No Cough, No Dry, No Shortness of breath, No SOB with excertion, No Wheezing, No Hemoptysis, No Pleuritic Pain, No Sputum, No Other Gastrointestinal: No Nausea, No Vomiting, No Abdominal Pain, No Diarrhea, No Constipation, No Melena, No Hematochezia, No Other Genitourinary: No Dysuria, No Frequency, No Incontinence, No Hematuria, No Retention, No Other Musculoskeletal: No other, No neck pain, No shoulder pain, No arm pain, No back pain, No hand pain, No leg pain, No foot pain Skin: No Rash, No Lesions, No Jaundice, No Bruising, No Other Objective Vitals Vital Signs Date Time Temp Pulse Resp B/P (MAP) Pulse Ox O2 Delivery O2 Flow Rate FiO2 09/08/24 05:15 98.2 64 15 126/61 (82) 93 98.2 09/07/24 20:00 Room Air* 0 21 Intake/Output Intake and Output 09/08/24 07:00 Intake Total 400 ml Balance 400 ml Intake Oral 400 ml # Voids 3 Medications Current Medications Medications Dose Ordered Sig/Nitin Route Start Time Stop Time Status Last Admin Dose Admin Sodium Chloride 10 ml Q8HR IV 08/29/24 14:00 09/08/24 05:57 10 ML Ondansetron HCl 4 mg Q4HP PRN IV 08/29/24 11:15 Docusate Sodium 100 mg BIDPRN PRN PO 08/29/24 11:15 Acetaminophen 650 mg Q6HP PRN PO 08/29/24 11:15 Nitroglycerin 0.4 mg Q5MINP PRN SL 08/29/24 11:15 Clopidogrel Bisulfate 75 mg DAILY PO 08/30/24 10:00 09/07/24 09:33 75 MG Amlodipine Besylate 10 mg DAILY PO 08/30/24 10:00 09/07/24 09:33 10 MG Hydralazine HCl 10 mg Q6HP PRN IV 08/29/24 11:15 08/30/24 16:30 10 MG Diagnostic Test (Pha) 1 strip ACHS 08/29/24 11:30 09/08/24 05:57 1 STRIP Insulin Human Regular HS SC 08/29/24 22:00 Insulin Human Regular AC SC 08/29/24 11:30 09/06/24 12:55 2 UNITS Dextrose 50 ml UD PRN IV 08/29/24 11:30 Sevelamer HCl 2,400 mg TIDWM PO 08/29/24 18:00 09/07/24 18:00 2,400 MG Ergocalciferol 50,000 unit Q7D PO 09/01/24 14:45 09/01/24 17:14 50,000 UNIT Guaifenesin/ Dextromethorphan 10 ml Q6HPRN PRN PO 09/03/24 02:15 09/03/24 21:37 10 ML Laboratory Results Laboratory Tests 09/06/24 09:54 09/06/24 13:56 Microbiology Microbiology Date/Time Source Procedure Growth Status 08/29/24 17:08 Blood Blood Culture - Final NO GROWTH AFTER 5 DAYS OF INCUBATION. Complete Labs and/or images reviewed: Labs reviewed by me, Image(s) reviewed by me Assessment/Plan Assessment/Plan End-stage renal disease requiring hemodialysis 3 times a week: Consult by Dr. Asif appreciated Diabetes mellitus type 2 Hypertension History of CVA Anemia of chronic Kidney disease Hypophosphatemia Vitamin-D deficiency Noncompliance patient missed hemodialysis while visiting [place] Patient is full code Time spent 45 minutes Hepatitis panel negative for hep B and hep C Per complex case manager Winnie Madrigal, patient has chair time at [facility] starting on 09/19/2024 Advised the patient about the chair time in presence of RN Continue current management Plan discussed with: Patient Date of Service: Sep 08, 2024 Billing Provider: FELICIA NAM MD Common Visit Codes: [id number] INP/OBS CARE(HIGH) FELICIA NAM MD Sep 08, 2024 07:43
[2024-09-08] MEDS ORDERED: SEVE800T7 PO (08:02)
[2024-09-08] MEDS ORDERED: ERGO1CAP23 PO (08:04)
--- NOTE | 2024-09-08 08:10 | DVHDS2 ---
Discharge Summary Date of Admission Aug 29, 2024 at 11:09 Date of Discharge: Sep 08, 2024 Admitting Diagnosis Missed dialysis Wounds: None Labs/Diagnostic Data: Laboratory Results Test 09/08/24 05:26 09/06/24 13:56 09/06/24 09:54 08/30/24 05:17 POC Glucose 91 mg/dl (70-106) White Blood Count 5.7 10^3/uL (4.4-10.8) Red Blood Count 3.82 10^6/uL (4.0-5.20) Hemoglobin 11.4 g/dL (12.2-16.2) Hematocrit 36.2 % (36.0-46.0) Mean Corpuscular Volume 94.7 fL (80.0-100.0) Mean Corpuscular Hemoglobin 30.0 pg (28.0-32.0) Mean Corpuscular Hemoglobin Concent 31.6 g/dL (32.0-36.0) Red Cell Distribution Width 15.0 % (11.8-14.3) Platelet Count 166 10^3/uL (140-450) Mean Platelet Volume 10.1 fL (6.9-10.8) Neutrophils (%) (Auto) 67.5 % (37.0-80.0) Lymphocytes (%) (Auto) 25.9 % (10.0-50.0) Monocytes (%) (Auto) 4.9 % (0.0-12.0) Eosinophils (%) (Auto) 1.0 % (0.0-7.0) Basophils (%) (Auto) 0.7 % (0.0-2.0) Neutrophils # (Auto) 3.8 10 ^3/uL (1.6-8.6) Lymphocytes # (Auto) 1.5 10 ^3/uL (0.4-5.4) Monocytes # (Auto) 0.3 10 ^3/uL (0-1.3) Eosinophils # (Auto) 0.1 10 ^3/uL (0-0.8) Basophils # (Auto) 0 10 ^3/uL (0-0.2) Nucleated Red Blood Cells 0.1 % Sodium Level 135 mmol/L (136-145) Potassium Level 3.9 mmol/L (3.5-5.1) Chloride Level 100 mmol/L (98-107) Carbon Dioxide Level 24 mmol/L (20-31) Anion Gap 11 (5-15) Blood Urea Nitrogen 24 mg/dL (9-23) Creatinine 5.78 mg/dL (0.550-1.02) Glomerular Filtration Rate Calc 8 mL/min (>90) BUN/Creatinine Ratio 4.2 (10.0-20.0) Serum Glucose 107 mg/dL (74-106) Calcium Level 10.1 mg/dL (8.7-10.4) Total Bilirubin 0.2 mg/dL (0.2-1.0) Aspartate Amino Transferase (AST) 14 U/L (13-40) Alanine Aminotransferase (ALT) < 9 U/L (7-40) Alkaline Phosphatase 100 U/L (46-116) Total Protein 6.6 g/dL (5.7-8.2) Albumin 4.0 g/dL (3.2-4.8) Hepatitis A Antibody Total Positive (Negative) Hepatitis B Surface Antigen Negative (Negative) Hepatitis B Surface Antibody Negative (Negative) Hepatitis B Core Total Antibody Negative (Negative) Hepatitis C Antibody Negative (Negative) Test 08/29/24 17:08 08/29/24 11:42 08/29/24 08:37 Vitamin D 25-Hydroxy 7.1 ng/mL (30.0-100) Troponin I High Sensitivity 39 ng/L (</=34) Uric Acid 8.1 mg/dL (3.1-7.8) Phosphorus Level 8.7 mg/dL (2.4-5.1) Magnesium Level 3.2 mg/dL (1.6-2.6) B-Type Natriuretic Peptide 145.13 pg/mL (0-100) Parathyroid Hormone (Intact) 946.6 pg/mL (18.4-80.1) Other Laboratory Tests 09/06/24 13:56 09/06/24 09:54 Brief Hx & Hospital Course: 69-year-old female with a history of hypertension diabetes CVA anemia of chronic disease vitamin-D deficiency on dialysis for ESRD missed dialysis while visiting [place] and came to the hospital admitted here received hemodialysis by Dr. Asif. Patient has vitamin-D deficiency started on Renagel and vitamin-D 77070 units every week. Social service were trying to arrange dialysis chair time through [facility] the 1st appointment is on 09/19/2024. Ne[address] Hubbard arranged outpatient consultation on 09/11/24 in his office and he will arrange chart time. The patient agreeable for discharge. Prescription transmitted to the pharmacy. She will keep her appointment with Dr. Hubbard on 09-11-24 Consults/Reason for consult Nephrology Dr. Asif Operations or Procedures Hemodialysis Condition at Discharge: Fair Final Diagnosis/Problems List Assessment/Plan End-stage renal disease requiring hemodialysis 3 times a week: Consult by Dr. Asif appreciated Diabetes mellitus type 2 Hypertension History of CVA Anemia of chronic Kidney disease Hypophosphatemia Vitamin-D deficiency Noncompliance patient missed hemodialysis while visiting [place] Discharge Disposition: Home Discharge Instruct/Medications Diet: Renal Activity: Light activity Follow Up/Referral: Keep Your appointment with the Acid [employer] Dr. Hubbard on 09/11/2024 for arranging for dialysis Medications: Renagel Vitamin D3 Transmitted to the [facility] pharmacy 39 (Time taken for discharge summary 39 minutes) Discharge Statement: "Patient was advised to return to the ER or call 911 if any headaches, dizziness, shortness of breath, chest pain, abdominal pain, bleeding, fevers, or worsening of medical condition. Patient was counseled about treatment plan, medications, possible side effects, patientverbalized understanding. All questions were answered to the best of my ability. This discharge took greater then 30 minutes in planning, reviewing documentation, counseling the patient, and discussing with other team members." ASSESSMENT ASSESSMENT Hospital Course Improved Assessment Assessment/Plan End-stage renal disease requiring hemodialysis 3 times a week: Consult by Dr. Asif appreciated Diabetes mellitus type 2 Hypertension History of CVA Anemia of chronic Kidney disease Hypophosphatemia Vitamin-D deficiency Noncompliance patient missed hemodialysis while visiting [place] Date of Service: Sep 08, 2024 Billing Provider: FELICIA NAM MD Common Visit Codes: [id number] DISCH DAY >30min FELICIA NAM MD Sep 08, 2024 08:10
[2024-09-08 09:00] VITALS: BP 117/63; PULSE 62; RESP 16; TEMP 97.7; O2SAT 100
[2024-09-08 11:09] VITALS: BP 137/70; TEMP 36.5
== END 2024-09-08 12:40 | disposition home or self-care (01) | DRG 640 ==
LOC: ER 07:29 → TELE 11:09 → TELE-CENTR 21:34
PROVIDERS: ADMIT Nurse Practitioner Family; ATTEND Family Medicine
PROC: 5A1D70Z Performance of Urinary Filtration, Intermittent, Less than 6 Hours Per Day (ICD-10-PCS; principal; 2024-08-30)
PROC: 5A1D70Z Performance of Urinary Filtration, Intermittent, Less than 6 Hours Per Day (ICD-10-PCS; 2024-08-31)
PROC: 5A1D70Z Performance of Urinary Filtration, Intermittent, Less than 6 Hours Per Day (ICD-10-PCS; 2024-09-01)
PROC: 5A1D70Z Performance of Urinary Filtration, Intermittent, Less than 6 Hours Per Day (ICD-10-PCS; 2024-09-03)
PROC: 5A1D70Z Performance of Urinary Filtration, Intermittent, Less than 6 Hours Per Day (ICD-10-PCS; 2024-09-04)
PROC: 5A1D70Z Performance of Urinary Filtration, Intermittent, Less than 6 Hours Per Day (ICD-10-PCS; 2024-09-05)
PROC: 5A1D70Z Performance of Urinary Filtration, Intermittent, Less than 6 Hours Per Day (ICD-10-PCS; 2024-09-06)
DX: E87.5 Hyperkalemia (principal); N18.6 End stage renal disease; I12.0 Hypertensive chronic kidney disease with stage 5 chronic kidney disease or end stage renal disease; E44.1 Mild protein-calorie malnutrition; E78.5 Hyperlipidemia, unspecified; E11.22 Type 2 diabetes mellitus with diabetic chronic kidney disease; D63.1 Anemia in chronic kidney disease; I16.0 Hypertensive urgency; E55.9 Vitamin D deficiency, unspecified; Z99.2 Dependence on renal dialysis; Z86.73 Personal history of transient ischemic attack (TIA), and cerebral infarction without residual deficits; Z91.199 Patient's noncompliance with other medical treatment and regimen due to unspecified reason; Z79.4 Long term (current) use of insulin
CPT/HCPCS: 36415; 71046; 80048; 80053; 82306; 82962; 83735; 83880; 83970; 84100; 84484; 84550; 85025; 86704; 86706; 86708; 86803; 87040; 87340; 90935; 93306; G0378; J1642; J1815

== ENCOUNTER 2024-11-25 16:27 | Emergency (ER) | payer OTHER ==
[~2024-11-25] VITALS: Ht 165.1 cm; Wt 72.0 kg
[~2024-11-25 16:27] MED LIST changes: +AMLO1TAB22 PO; +ASPI-543 PO; +CARV12.544 PO; -CEPH-509 PO; -CEPH500C PO; +CLOP75TA70 PO; +DOCU-94 PO; +ERGO1CAP23 PO; +HYDR100T10 PO; +INSU100I70 SC; +MULT-1018 PO; +OMEGCAP20 OR; +ROSU40TA81 PO; +SEVE800T7 PO; +TIMO0.5S28 EACHEYE
--- NOTE | 2024-11-25 16:39 | ED.PDOC ---
SOB-HPI HPI Comments 69-year-old female with PMHx ESRD, HTN, DM brought in by EMS presents with a chief complaint of SOB, sudden onset during dialysis. Patient was undergoing dialysis when she became SOB and states that she felt "panicky". Patient reports that this happens every time she has dialysis. Dialysis staff noticed she was hypoxic, so stopped the dialysis. Approximately 0.6L was dialyzed. Arrival by EMS, patient was found to have oxygen saturation 65% on 10L nasal cannula per EMS, but oxygen saturation was fluctuating, up to 100% while on 4L. Patient denies using oxygen at home. Patient denies chest pain, cough, abdominal pain, nausea, vomiting, fever or edema. 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 Family History Family History: Unknown Social History Smoker: Non-Smoker Alcohol: Denies ETOH Use Drugs: Denies Drug Use Lives In: Home Constitutional: denies: chills, diaphoresis, fatigue, fever, malaise, sweats, weakness, others EENTM: denies: blurred vision, double vision, ear bleeding, ear discharge, ear drainage, ear pain, ear ringing, eye pain, eye redness, hearing loss, mouth pain, mouth swelling, nasal discharge, nose bleeding, nose congestion, nose pain, photophobia, tearing, throat pain, throat swelling, voice changes, others Respiratory: reports: SOB at rest, shortness of breath; denies: cough, hemoptysis, orthopnea, SOB with excertion, stridor, wheezing, others Cardiovascular: denies: chest pain, dizzy spells, diaphoresis, Dyspnea on exertion, edema, irregular heart beat, left arm pain, lightheadedness, palpitations, PND, syncope, others Gastrointestinal: denies: abdomen distended, abdominal pain, blood streaked bowels, constipated, diarrhea, dysphagia, difficulty swallowing, hematemesis, melena, nausea, poor appetite, poor fluid intake, rectal bleeding, rectal pain, vomiting, others Genitourinary: denies: abnormal vagina bleeding, burning, dyspareunia, dysuria, flank pain, frequency, hematuria, incontinence, pain, , vagina discharge, urgency, others Neurological: denies: dizziness, fainting, headache, left sided numbness, left sided weakness, numbness, paresthesia, pre-existing deficit, right sided numbness, right sided weakness, seizure, speech problems, tingling, tremors, weakness, others Musculoskeletal: denies: back pain, gout, joint pain, joint swelling, muscle pain, muscle stiffness, neck pain, others Integumetry: denies: bruises, change in color, change in hair/nails, dryness, laceration, lesions, lumps, rash, wounds, others Allergic/Immunocompromised: denies: Difficulty Healing, Frequent Infections, Hives, Itching, others Hematologic/Lymphatic: denies: anemia, blood clots, easy bleeding, easy bruising, swollen glands, others Endocrine: denies: excessive hunger, excessive sweating, excessive thirst, excessive urination, flushing, intolerance to cold, intolerance to heat, unexplained weight gain, unexplained weight loss, others Psychiatric: reports: anxiety; denies: bipolar disorder, depression, hopeless, panic disorder, schizophrenia, sleepless, suicidal, others All Other Systems: Reviewed and Negative Physical Exam General Appearance: Mild Distress HEENT: PERRL/EOMI Neck: Full Range of Motion, Normal Inspection Respiratory: Chest Non-Tender, Decreased Breath Sounds, No Accessory Muscle Use, Respiratory Distress, Other (Tachypnea) Cardiovascular: No Edema, No JVD, Regular Rate/Rhythm Breast Exam: Deferred Gastrointestinal: Non Tender, Soft Genitalia: Deferred Pelvic: Deferred Rectal: Deferred Extremities: Normal inspection, Normal range of motion, Non-tender, No pedal edema Neurologic: Alert (Oriented x4), Other (Anxious. Purposefully moves all extremities. No gross focal deficit.) Cerebellar Function: NOT DONE Reflexes: NOT DONE Skin: Dry, Normal Color, Warm Lymphatic: NOT DONE EKG EKG : Comments Sinus rhythm, rate 85, normal AK and QRS intervals, QTC prolonged at 519, left axis deviation, probable LVH with secondary repolarization abnormality, nonspecific T changes. Was a procedure done? Was a procedure done?: No Differential Dx Differential Diagnosis: Asthma, Bronchitis, CHF, COPD, Hyperventilation, Myocardial infarction, Panic Attack, Pulmonary Embolism, Respiratory Distress, URI X-Ray, Labs, Meds, VS Vital Signs Date Time Temp Pulse Resp B/P (MAP) Pulse Ox O2 Delivery O2 Flow Rate FiO2 11/25/24 22:02 77 14 199/84 11/25/24 18:00 98.7 102 20 139/88 (105) 94 98.7 11/25/24 16:49 97.6 94 24 133/97 (109) 97 97.6 11/25/24 16:28 85 Lab Test 11/25/24 19:44 11/25/24 19:42 11/25/24 18:09 Range/Units Troponin I High Sensitivity 65 *H 74 *H </=34 ng/L POC Glucose 106 70-106 mg/dl White Blood Count 5.6 4.4-10.8 10^3/uL Red Blood Count 3.61 L 4.0-5.20 10^6/uL Hemoglobin 10.8 L 12.2-16.2 g/dL Hematocrit 33.3 L 36.0-46.0 % Mean Corpuscular Volume 92.2 80.0-100.0 fL Mean Corpuscular Hemoglobin 29.9 28.0-32.0 pg Mean Corpuscular Hemoglobin Concent 32.4 32.0-36.0 g/dL Red Cell Distribution Width 17.4 H 11.8-14.3 % Platelet Count 188 140-450 10^3/uL Mean Platelet Volume 9.0 6.9-10.8 fL Neutrophils (%) (Auto) 63.6 37.0-80.0 % Lymphocytes (%) (Auto) 29.7 10.0-50.0 % Monocytes (%) (Auto) 5.1 0.0-12.0 % Eosinophils (%) (Auto) 1.1 0.0-7.0 % Basophils (%) (Auto) 0.5 0.0-2.0 % Neutrophils # (Auto) 3.6 1.6-8.6 10 ^3/uL Lymphocytes # (Auto) 1.7 0.4-5.4 10 ^3/uL Monocytes # (Auto) 0.3 0-1.3 10 ^3/uL Eosinophils # (Auto) 0.1 0-0.8 10 ^3/uL Basophils # (Auto) 0 0-0.2 10 ^3/uL Nucleated Red Blood Cells 0.1 % Sodium Level 137 136-145 mmol/L Potassium Level 4.8 3.5-5.1 mmol/L Chloride Level 101 98-107 mmol/L Carbon Dioxide Level 25 20-31 mmol/L Anion Gap 11 5-15 Blood Urea Nitrogen 20 9-23 mg/dL Creatinine 4.28 H 0.550-1.02 mg/dL Glomerular Filtration Rate Calc 11 >90 mL/min BUN/Creatinine Ratio 4.7 L 10.0-20.0 Serum Glucose 142 H 74-106 mg/dL Calcium Level 10.4 8.7-10.4 mg/dL B-Type Natriuretic Peptide 197.06 0-100 pg/mL Current Medications Medications (Trade) Dose Ordered Sig/Nitin Route Start Time Stop Time Status Last Admin Aspirin 325 mg ONCE ONCE PO 11/25/24 20:15 11/25/24 20:16 DC 11/25/24 22:02 Morphine Sulfate 4 mg ONCE ONCE IV 11/25/24 20:15 11/25/24 20:16 DC 11/25/24 22:02 Ondansetron HCl (Zofran) 4 mg ONCE ONCE IV 11/25/24 20:15 11/25/24 20:16 DC 11/25/24 22:01 PROCEDURE(s): CXRP - CHEST PORTABLE REASON: sob ORDER NUMBER(s): [id number], ACCESSION NUMBER(s): [id number] EXAM: XY CHEST PORTABLE TECHNIQUE: Single frontal chest radiograph CLINICAL HISTORY: sob COMPARISON: None Findings/Impression: Frontal chest radiograph demonstrates no acute osseous or superficial soft tissue abnormalities. Tunneled right-sided HD catheter terminates in the right atrium. The trachea is midline. The cardiac silhouette and mediastinum are within normal limits. Minimal left basilar atelectasis. No pneumothorax, pleural effusions, or consolidations. X-Ray, Labs, Meds, VS Comment 69-year-old female with a history of hypertension, diabetes, CVA, dyslipidemia, end-stage renal disease on dialysis presenting complaining of shortness a breath while undergoing dialysis. Dialysis was not completed. Vitals remarkable for respiratory rate 24, BP 133/97 Exam remarkable for mild respiratory distress and tachypnea, diminished breath sounds at both bases Rhythm strip independently interpreted by me: Sinus rhythm, rate 85, no ectopy. Chest x-ray Findings/Impression: Frontal chest radiograph demonstrates no acute osseous or superficial soft tissue abnormalities. Tunneled right-sided HD catheter terminates in the right atrium. The trachea is midline. The cardiac silhouette and mediastinum are within normal limits. Minimal left basilar atelectasis. No pneumothorax, pleural effusions, or consolidations. CBC remarkable for hemoglobin 10.8, hematocrit 33.3, basic metabolic panel remarkable for creatinine 4.28, BNP 197.06, troponins 74 and 65 Patient treated with the following in the ED: Ativan 1 mg IV, aspirin 325 mg p.o., morphine 4 mg IV (for left upper extremity pain), Zofran 4 mg IV Plan was to admit the patient for Cardiology evaluation and completion of hemodialysis. Discussed the case with Dr. Almonte, who did not feel the patient required hosp italization. He felt that the elevated troponin was due to poor renal clearance. He requested the patient be discharged home. He will arrange for a home health visit within the next 1-2 days. On re-evaluation, patient states she is not in any pain and she is not short of breath. Her oxygen saturation is 97-98% on room air and she is not in respiratory distress. Blood pressure is 159/69. Heart rate is 69. She denies any chest pain. Patient will be discharged with close follow-up with home health. Time of 1ST Reevaluation: 17:00 Reevaluation 1ST: Unchanged Time of 2ND Reevaluation: 22:40 Reevaluation 2ND: Improved Patient Education/Counseling: Diagnosis, Need For Follow Up Family Education/Counseling: No Family Present Departure 1 Departure Time of Disposition: 22:37 Impression: Primary Impression: Shortness of breath Disposition: 01 HOME / SELF CARE / HOMELESS Condition: Stable Additional Instructions: You will be contacted for a home health visit follow-up within the next 1-2 days. Return to ER for chest pain, recurrent shortness of breath, or any other concern. Discharged With: Self Critical Care Note Critical Care Time?: No Stability Stability form required: No Heart Score Heart Score: Heart Score Response (Comments) Value History Slightly Suspicious 0 EKG Repolarization Disturb 1 Age >65 2 Risk Factors >3 or Hx ASHD 2 Troponin 1-2 x's Normal limit 1 Total 6 I personally scribed for PASCUAL LOVE MD ([email or web address]) on 11/25/24 at 16:39. Electronically submitted by Matthew Hogan [email or web address]). PASCUAL LOVE MD Nov 25, 2024 16:39
--- NOTE | 2024-11-25 17:44 | DVH ---
EXAM: XY CHEST PORTABLE TECHNIQUE: Single frontal chest radiograph CLINICAL HISTORY: sob COMPARISON: None Findings/Impression: Frontal chest radiograph demonstrates no acute osseous or superficial soft tissue abnormalities. Tunn eled right-sided HD catheter terminates in the right atrium. The trachea is midline. The cardiac silhouette and mediastinum are within normal limits. Minimal left basilar atelectasis. No pneumothorax, pleural effusions, or consolidations.
[2024-11-25] MEDS: LORazepam 2MG/ML-1ML VIAL IV ONE (17:57)
[2024-11-25 18:36] LABS: Basophils # (auto) 0 10 ^3/uL (0-0.2); Basophils % (auto) 0.5 % (0.0-2.0); Eosinophils # (auto) 0.1 10 ^3/uL (0-0.8); Eosinophils % (auto) 1.1 % (0.0-7.0); Hematocrit 33.3 % (36.0-46.0); Hemoglobin 10.8 g/dL (12.2-16.2); Lymphocytes # (auto) 1.7 10 ^3/uL (0.4-5.4); Lymphocytes % (auto) 29.7 % (10.0-50.0); Mean Corpuscular Hemoglobin 29.9 pg (28.0-32.0); Mean Corpuscular Hgb Conc. 32.4 g/dL (32.0-36.0); Mean Corpuscular Volume 92.2 fL (80.0-100.0); Monocytes # (auto) 0.3 10 ^3/uL (0-1.3); Monocytes % (auto) 5.1 % (0.0-12.0); Neutrophils # (auto) 3.6 10 ^3/uL (1.6-8.6); Neutrophils % (auto) 63.6 % (37.0-80.0); Nucleated Red Blood Cells % 0.1 %; Platelet Count (auto) 188 10^3/uL (140-450); Red Blood Cells 3.61 10^6/uL (4.0-5.20); Red Cell Distribution Width 17.4 % (11.8-14.3); White Blood Cell 5.6 10^3/uL (4.4-10.8)
[2024-11-25 18:46] LABS: Chloride 101 mmol/L (98-107); Potassium 4.8 mmol/L (3.5-5.1); Sodium 137 mmol/L (136-145)
[2024-11-25 18:47] LABS: Anion Gap 11 (5-15); Calcium 10.4 mg/dL (8.7-10.4); Carbon Dioxide 25 mmol/L (20-31)
[2024-11-25 18:52] LABS: BUN/Creatinine Ratio 4.7 (10.0-20.0); Blood Urea Nitrogen 20 mg/dL (9-23)
[2024-11-25 18:53] LABS: Glucose 142 mg/dL (74-106)
[2024-11-25 19:40] VITALS: PULSE 102; RESP 22; TEMP 98; O2SAT 94
[2024-11-25] MEDS: ONDANSETRON HCL 4 MG/2 ML VIAL IV ONE (22:01)
[2024-11-25] MEDS: MORPHINE SULFATE 4 MG/ML SYR/VIAL IV ONE (22:02)
[2024-11-25] MEDS: ASPirin 325 MG TAB PO ONE (22:02)
[2024-11-25] MEDS ORDERED: NITROGLYCERIN 2% OINT 1GM PKG TD ONE (22:30)
[2024-11-25] MEDS ORDERED: CARVEDILOL 12.5 MG TAB PO ONE (22:30)
[2024-11-25 22:51] VITALS: BP 145/75; PULSE 81; RESP 11; O2SAT 100
--- NOTE | 2024-11-26 20:13 | ECG ---
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
== END 2024-11-25 23:30 | disposition home or self-care (01) ==
LOC: EDBD 16:27 → ER 16:27
DX: R06.02 Shortness of breath (principal); I12.0 Hypertensive chronic kidney disease with stage 5 chronic kidney disease or end stage renal disease; E11.22 Type 2 diabetes mellitus with diabetic chronic kidney disease; N18.6 End stage renal disease; Z99.2 Dependence on renal dialysis; E78.5 Hyperlipidemia, unspecified; Z90.49 Acquired absence of other specified parts of digestive tract; Z90.89 Acquired absence of other organs
CPT/HCPCS: 36415; 71045; 80048; 82947; 83880; 84484; 85025; 93005; 96374; 96375; 99285; J2060; J2270; J2405; 82962

== ENCOUNTER 2024-12-15 21:48 | Emergency (ER) | payer OTHER ==
[~2024-12-15] VITALS: Ht 165.1 cm; Wt 70.9 kg
--- NOTE | 2024-12-15 22:07 | ED.PDOC ---
History of Present Illness HPI Comments 69-year-old female brought in by EMS presents with a chief complaint of hypertension s/p dialysis. Per EMS, patient was at dialysis was was hypertensive in the 200's systolic. Patient had dialysis and they took off 1600 mL of fluid from dialysis. Per EMS, patient endorsed having chest pain afterwards and they gave 2 x NTG to patient, but then soon after she became lethargic with a BP in the low 90's systolic. Per EMS, patient was initially 90/40 but now on arrival is hypertensive at 208/86. History is hard to obtain as patient is pleasantly confused due to the Dementia. Chief Complaint: Chest Pain Time Seen by MD: 21:52 Primary Care Provider: MEDICAL Reviewed Notes: Medications, Allergies Allergies: Coded Allergies: Iodine (Verified Allergy, Severe, ANAPHYLAXIS, 08/30/24) Lisinopril (Verified Allergy, Severe, ANGIOEDEMA, 08/30/24) Atorvastatin (Verified Allergy, Intermediate, SWELLING, 08/30/24) Latex (Verified Allergy, Intermediate, HIVES, 08/30/24) Ampicillin (Verified Allergy, Unknown, 08/30/24) Home Meds Active Scripts Ergocalciferol (VITAMIN D 80956 UNIT) 50,000 [place], [address] UNIT PO QWEEKLY, #20 CAP Prov:FELICIA NAM MD 09/08/24 Sevelamer Hydrochloride (Renagel) 800 Mg Tab, 2400 MG PO TID, #270 TAB Prov:FELICIA NAM MD 09/08/24 Prednisone (Prednisone) 10 Mg Tab, 10 MG PO BID for 5 Days, #10 TAB 0 Refills Prov:JEFF BRITT 01/17/24 Acetaminophen (Acetaminophen) 500 Mg Tab, 500 MG PO Q4HPRN, #30 TAB 0 Refills Prov:JEFF BRITT 01/17/24 Acetaminophen W/ Codeine (Tylenol W/Cod #3) 1 Tab Tb, 1 TAB PO QIDP, #10 TAB 0 Refills Prov:JEFF BRITT 12/16/21 Reported Medications [place] 3 Fatty Acids-[place] 6 Fa (Sm [place]-3-6-9 Fatty Acid) Cap, 1 OR, CAP 08/30/24 Timolol Maleate (Timolol Maleate Ophthalmi) 0.5 % Ayana, 1 DROP EACHEYE BID, #5 ML 5 Refills 08/30/24 Docusate Sodium (Colace) 100 Mg Cap, 1 CAP PO BID, #30 CAP 08/30/24 Amlodipine Besylate (Amlodipine Besylate) 5 Mg Tab, 10 MG PO DAILY for 30 Days, MG 08/30/24 Amlodipine Besylate (Amlodipine Besylate) 5 Mg Tab, 5 MG PO DAILY for 30 Days, MG 08/30/24 Aspirin (Aspir-Low) 81 Mg Tab, 81 MG PO DAILY for 30 Days, MG 08/30/24 Multiple Vitamin (Multivitamins) Tab, PO DAILY, #90 TAB 3 Refills 08/30/24 Rosuvastatin Calcium (Crestor) 40 Mg Tab, 1 TAB PO DAILY, #30 TAB 5 Refills 08/30/24 Insulin Glargine-Yfgn (Insulin Glargine) 100 Unit/Ml Inj, 100 UNIT SC, INJ 08/30/24 Hydralazine Hcl (Hydralazine Hcl) 100 Mg Tab, 1 TAB PO DAILY, #90 TAB 5 Refills 08/30/24 Carvedilol (Carvedilol) 12.5 Mg Tab, 1 TAB PO BID 08/29/24 Clopidogrel Bisulfate (CLOPIDOGREL) 75 Mg Tab, 1 TAB PO DAILY 08/29/24 Information Source: Emergency Med Personnel Mode of Arrival: EMS Severity: Moderate Timing: Minutes Duration: Since onset Prehospital treatment: NTG Past Medical History PAST MEDICAL HISTORY: CKF, CVA, Dementia, DM, ESRD, High Lipids, HTN Surgical History: Hernia Repair, Tonsillectomy 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 [employer] RECOVERY History Family History Family History: Unknown Social History Smoker: Non-Smoker Alcohol: Denies ETOH Use Drugs: Denies Drug Use Lives In: Home Constitutional: denies: chills, diaphoresis, fatigue, fever, malaise, sweats, weakness, others EENTM: denies: blurred vision, double vision, ear bleeding, ear discharge, ear drainage, ear pain, ear ringing, eye pain, eye redness, hearing loss, mouth pain, mouth swelling, nasal discharge, nose bleeding, nose congestion, nose pain, photophobia, tearing, throat pain, throat swelling, voice changes, others Respiratory: denies: cough, hemoptysis, orthopnea, SOB at rest, shortness of breath, SOB with excertion, stridor, wheezing, others Cardiovascular: denies: chest pain, dizzy spells, diaphoresis, Dyspnea on exertion, edema, irregular heart beat, left arm pain, lightheadedness, palpitations, PND, syncope, others Gastrointestinal: denies: abdomen distended, abdominal pain, blood streaked bowels, constipated, diarrhea, dysphagia, difficulty swallowing, hematemesis, melena, nausea, poor appetite, poor fluid intake, rectal bleeding, rectal pain, vomiting, others Genitourinary: denies: abnormal vagina bleeding, burning, dyspareunia, dysuria, flank pain, frequency, hematuria, incontinence, pain, , vagina discharge, urgency, others Neurological: denies: dizziness, fainting, headache, left sided numbness, left sided weakness, numbness, paresthesia, pre-existing deficit, right sided numbness, right sided weakness, seizure, speech problems, tingling, tremors, weakness, others Musculoskeletal: denies: back pain, gout, joint pain, joint swelling, muscle pain, muscle stiffness, neck pain, others Integumetry: denies: bruises, change in color, change in hair/nails, dryness, laceration, lesions, lumps, rash, wounds, others Allergic/Immunocompromised: denies: Difficulty Healing, Frequent Infections, Hives, Itching, others Hematologic/Lymphatic: denies: anemia, blood clots, easy bleeding, easy bruising, swollen glands, others Endocrine: denies: excessive hunger, excessive sweating, excessive thirst, excessive urination, flushing, intolerance to cold, intolerance to heat, unexplained weight gain, unexplained weight loss, others Psychiatric: denies: anxiety, bipolar disorder, depression, hopeless, panic disorder, schizophrenia, sleepless, suicidal, others Unable to Obtain due to: Dementia All Other Systems: Reviewed and Negative Physical Exam General Appearance: No Apparent Distress, Normal HEENT: Normal ENT Inspection, Pharynx Normal, TMs Normal Neck: Full Range of Motion, Non-Tender, Normal, Normal Inspection Respiratory: Chest Non-Tender, Lungs Clear, No Accessory Muscle Use, No Respiratory Distress, Normal Breath Sounds Cardiovascular: No Edema, No JVD, No Murmur, No Gallop, Normal Peripheral Pulses, Regular Rate/Rhythm Breast Exam: Deferred Gastrointestinal: No Organomegaly, Non Tender, No Pulsatile Mass, Normal Bowel Sounds, Soft Genitalia: Deferred Pelvic: Deferred Rectal: Deferred Extremities: No calf tenderness, Normal capillary refill, Normal inspection, Normal range of motion, Non-tender, No pedal edema Musculoskeletal : Apperance: Normal Neurologic: Alert, supervisor wash house II-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 Was a procedure done?: No Differential Dx Considerations may include: Differential diagnosis includes but not limited to: angina, myocardial infarction, pulmonary embolus, pleurisy, musculoskeletal etiology and others X-Ray, Labs, Meds, VS Vital Signs Date Time Temp Pulse Resp B/P (MAP) Pulse Ox O2 Delivery O2 Flow Rate FiO2 12/16/24 01:15 77 13 193/90 (124) 94 12/16/24 00:45 73 13 210/88 (128) 94 12/16/24 00:12 207/97 12/16/24 00:01 72 207/97 (133) 12/16/24 00:00 76 12/15/24 23:33 77 12 191/88 (122) 95 12/15/24 23:31 83 9 96 Nasal Cannula* 2 28 12/15/24 23:25 73 12/15/24 22:57 98.0 83 9 210/95 (133) 96 98.0 12/15/24 21:54 67 12/15/24 21:50 98.2 70 18 190/84 (119) 98 98.2 Lab Test 12/16/24 01:29 12/15/24 23:20 12/15/24 22:15 Range/Units Troponin I High Sensitivity 64 *H 77 *H 72 *H </=34 ng/L White Blood Count 6.6 4.4-10.8 10^3/uL Red Blood Count 3.09 L 4.0-5.20 10^6/uL Hemoglobin 9.2 L 12.2-16.2 g/dL Hematocrit 28.1 L 36.0-46.0 % Mean Corpuscular Volume 91.1 80.0-100.0 fL Mean Corpuscular Hemoglobin 29.9 28.0-32.0 pg Mean Corpuscular Hemoglobin Concent 32.8 32.0-36.0 g/dL Red Cell Distribution Width 16.6 H 11.8-14.3 % Platelet Count 207 140-450 10^3/uL Mean Platelet Volume 9.2 6.9-10.8 fL Neutrophils (%) (Auto) 75.1 37.0-80.0 % Lymphocytes (%) (Auto) 17.7 10.0-50.0 % Monocytes (%) (Auto) 5.7 0.0-12.0 % Eosinophils (%) (Auto) 1.1 0.0-7.0 % Basophils (%) (Auto) 0.4 0.0-2.0 % Neutrophils # (Auto) 4.9 1.6-8.6 10 ^3/uL Lymphocytes # (Auto) 1.2 0.4-5.4 10 ^3/uL Monocytes # (Auto) 0.4 0-1.3 10 ^3/uL Eosinophils # (Auto) 0.1 0-0.8 10 ^3/uL Basophils # (Auto) 0 0-0.2 10 ^3/uL Nucleated Red Blood Cells 0.1 % Prothrombin Time 10.3 9.3-11.8 sec Prothrombin Time INR 0.97 0.9-1.15 Activated Partial Thromboplast Time 23.2 L 24.5-34.5 SEC Sodium Level 140 136-145 mmol/L Potassium Level 4.7 3.5-5.1 mmol/L Chloride Level 103 98-107 mmol/L Carbon Dioxide Level 26 20-31 mmol/L Anion Gap 11 5-15 Blood Urea Nitrogen 38 H 9-23 mg/dL Creatinine 5.77 H 0.550-1.02 mg/dL Glomerular Filtration Rate Calc 8 >90 mL/min BUN/Creatinine Ratio 6.6 L 10.0-20.0 Serum Glucose 139 H 74-106 mg/dL Calcium Level 9.7 8.7-10.4 mg/dL Total Bilirubin 0.3 0.2-1.0 mg/dL Aspartate Amino Transferase (AST) 16 13-40 U/L Alanine Aminotransferase (ALT) < 9 7-40 U/L Alkaline Phosphatase 93 46-116 U/L Total Protein 6.7 5.7-8.2 g/dL Albumin 4.1 3.2-4.8 g/dL Current Medications Medications (Trade) Dose Ordered Sig/Nitin Route Start Time Stop Time Status Last Admin Hydralazine HCl (Apresoline Tablet) 50 mg ONCE ONCE PO 12/16/24 00:15 12/16/24 00:16 DC 12/16/24 00:12 Time of 1ST Reevaluation: 22:22 Reevaluation 1ST: Unchanged Patient Education/Counseling: Diagnosis, Treatment, Prognosis Family Education/Counseling: No Family Present Departure 1 Departure Time of Disposition: 23:45 Impression: Primary Impression: Chest pain Additional Impression: End stage renal failure on dialysis Disposition: HOME / SELF CARE / HOMELESS Condition: Stable Discharged With: Self Critical Care Note Critical Care Time?: No Stability Stability form required: No Heart Score Heart Score: Heart Score Response (Comments) Value History Slightly Suspicious 0 EKG Normal 0 Age >65 2 Risk Factors 1 or 2 risk factors 1 Troponin 1-2 x's Normal limit 1 Total 4 I personally scribed for TRA MUNIZ MD ([email or web address]) on 12/15/24 at 22:07. Electronically submitted by Matthew Hogan [email or web address]). TRA MUNIZ MD Dec 15, 2024 22:07
--- NOTE | 2024-12-15 22:26 | DVH ---
CHEST RADIOGRAPH Indication: chest pain Technique: Single frontal view of the chest was obtained Comparison: XY CHEST PORTABLE on DOS: 11/25/24 FINDINGS: Lines and Tubes: Right IJ HD catheter with tip terminating in the right atrium. Lungs: Clear Pleura: No effusion. No pneumothorax. Cardiomediastinal contours: Unremarkable Bones: Unremarkable IMPRESSION: Clear lungs.
[2024-12-15 22:50] LABS: Basophils # (auto) 0 10 ^3/uL (0-0.2); Basophils % (auto) 0.4 % (0.0-2.0); Eosinophils # (auto) 0.1 10 ^3/uL (0-0.8); Eosinophils % (auto) 1.1 % (0.0-7.0); Hematocrit 28.1 % (36.0-46.0); Hemoglobin 9.2 g/dL (12.2-16.2); Lymphocytes # (auto) 1.2 10 ^3/uL (0.4-5.4); Lymphocytes % (auto) 17.7 % (10.0-50.0); Mean Corpuscular Hemoglobin 29.9 pg (28.0-32.0); Mean Corpuscular Hgb Conc. 32.8 g/dL (32.0-36.0); Mean Corpuscular Volume 91.1 fL (80.0-100.0); Monocytes # (auto) 0.4 10 ^3/uL (0-1.3); Monocytes % (auto) 5.7 % (0.0-12.0); Neutrophils # (auto) 4.9 10 ^3/uL (1.6-8.6); Neutrophils % (auto) 75.1 % (37.0-80.0); Nucleated Red Blood Cells % 0.1 %; Platelet Count (auto) 207 10^3/uL (140-450); Red Blood Cells 3.09 10^6/uL (4.0-5.20); Red Cell Distribution Width 16.6 % (11.8-14.3); White Blood Cell 6.6 10^3/uL (4.4-10.8)
[2024-12-15 22:57] VITALS: TEMP 98
[2024-12-15 23:10] LABS: Albumin 4.1 g/dL (3.2-4.8); Alkaline Phosphatase 93 U/L (46-116); Anion Gap 11 (5-15); Aspartate Aminotransferase 16 U/L (13-40); BUN/Creatinine Ratio 6.6 (10.0-20.0); Bilirubin, Total 0.3 mg/dL (0.2-1.0); Calcium 9.7 mg/dL (8.7-10.4); Carbon Dioxide 26 mmol/L (20-31); Chloride 103 mmol/L (98-107); Potassium 4.7 mmol/L (3.5-5.1); Sodium 140 mmol/L (136-145); Total Protein 6.7 g/dL (5.7-8.2)
[2024-12-15 23:16] LABS: INR 0.97 (0.9-1.15); Partial Thromboplastin Time 23.2 SEC (24.5-34.5); Prothrombin Time 10.3 sec (9.3-11.8)
[2024-12-15 23:20] LABS: Alanine Aminotransferase < 9 U/L (7-40); Blood Urea Nitrogen 38 mg/dL (9-23); Glucose 139 mg/dL (74-106)
[2024-12-15 23:31] VITALS: PULSE 83; RESP 9; O2SAT 96
[2024-12-16] MEDS: hydrALAZINE HCL 25 MG TAB PO ONE (00:12)
[2024-12-16 01:15] VITALS: BP 193/90; PULSE 77; RESP 13; O2SAT 94
--- NOTE | 2024-12-16 19:12 | ECG ---
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
--- NOTE | 2024-12-16 19:13 | ECG ---
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
== END 2024-12-16 01:58 | disposition home or self-care (01) ==
LOC: ER 21:48 → EDBD 21:48 → ER 12-16 01:50
DX: R07.89 Other chest pain (principal); I12.0 Hypertensive chronic kidney disease with stage 5 chronic kidney disease or end stage renal disease; E11.22 Type 2 diabetes mellitus with diabetic chronic kidney disease; N18.6 End stage renal disease; Z99.2 Dependence on renal dialysis; Z86.73 Personal history of transient ischemic attack (TIA), and cerebral infarction without residual deficits; Z79.899 Other long term (current) drug therapy; Z98.890 Other specified postprocedural states; Z90.89 Acquired absence of other organs; Z79.02 Long term (current) use of antithrombotics/antiplatelets; Z79.52 Long term (current) use of systemic steroids; Z79.82 Long term (current) use of aspirin; Z88.0 Allergy status to penicillin; Z88.8 Allergy status to other drugs, medicaments and biological substances
CPT/HCPCS: 36415; 71045; 80053; 84484; 85025; 85610; 85730; 93005